=== PATIENT | female | born 1945 | race Caucasian/White ===

== ENCOUNTER 2017-04-06 02:26 | Inpatient (IN) | payer OTHER ==
[~2017-04-06] VITALS: Ht 165.1 cm; Wt 63.5 kg
[~2017-04-06 02:26] MED LIST: CALCIUM600 M3 PO; LEVOTHYROXINE75 MCG PO; MULTI-DAY VITA1 EACH PO; TRAMADOL HCL50 M1 PO; VITAMIN D2000 UNIT PO
[2017-04-06] MEDS ORDERED: LEVOXYL75 MCG PO (06:48)
--- NOTE | 2017-04-06 10:08 | Admission Core Measures ---
Admission Meds I reviewed the following Meds: Current Medications Sig/Michael Start time Last Medication Dose Stop Time Status Admin Vancomycin HCl 1,000 MG ONCE 04/06 0000 NR Sodium Chloride 250 ML 04/06 6529 (Normal Saline 0.9%) Acute Coronary Syndrome Inclusion Criteria ACS Diagnosis No Inpatient Core Measures LDL Reminder: If No, please order W/I first 24hr of stay Congestive Heart Failure Inclusion Criteria CHF Diagnosis No Cerebrovascular accident Inclusion Criteria CVA/TIA Diagnosis No Inpatient Core Measures Bedside Swallow Eval Reminder: If BSE failed, place ST order Antithrombotic Reminder: Order Antithrombotic Medication by end of day 2 Antithrombotic Reminder: Document Reason Antithrombotic Not ordered by end of day 2 AFIB/Flutter Reminder: If Present, add to problem list AFIB/Flutter Reminder: Order Anticoag Medication for pts with AFIB/Flutter Atherosclerosis Reminder: If Present, add to problem list LDL Reminder: If No, please order W/I first 24hr of stay PT Order Reminder: If No, please order Venous thromboembolism Inpatient Core Measures VTE Risk Factors: Age > 40, Surgery No Mech VTE prophylaxis d/t No contraindications No VTE Pharm Prophylaxis d/t No contraindications Inclusion Criteria - Per Current guidelines, there needs to be overlap - treatment for the first 5 days of Warfarin therapy. - Parenteral Anticoagulation (IV or SC) needs to be - given along with Warfarin therapy. VTE Diagnosis No VTE Type NONE VTE Confirmed by (Test) NONE Problem List As ranked by this Provider includes Assessment & Plan 1. S/P total knee arthroplasty HOME MEDS Home Med List Cholecalciferol (Vitamin D3) (Vitamin D) 2,000 UNIT CAPSULE 1 CAP PO DAILY SUPP (Reported) Levothyroxine Sodium 75 MCG TABLET 1 TAB PO DAILY AC THYROID (Reported) Levothyroxine Sodium (Levoxyl) 75 MCG TABLET 1 TAB PO DAILY thyroid (Reported ) Multivitamin (Multi-Day Vitamins) 1 EACH TABLET 1 TAB PO DAILY SUPP (Reported ) Tramadol HCl 50 MG TABLET 1 TAB PO BIDP PRN PAIN (Reported)
--- NOTE | 2017-04-06 11:04 | Operative Report ---
Operative/Inv Procedure Report Surgery Date: 04/06/17 Name of Procedure: #1 right total knee arthroplasty #2 extensor mechanism realignment including lateral release medial imbrication of vastus medialis Pre-Operative Diagnosis: #1 right knee osteoarthritis #2 right knee patellar dislocation Post-Operative Diagnosis: Same Estimated Blood Loss: less than 50ml Surgeon/Tank Calibrator: ROSY MOREIRA,rahel FLORENTINO Anesthesia: block Implants: Heather triathlon total knee system-size 5 femur, size 4 tibia, 9 mm cruciate retaining polyethylene, 29 patella Drains: None Specimens: Femoral, tibial, patellar bone Microbiology: Urine Tourniquet: 83 minutes Complications: None Condition: Stable Operative Indication: Patient is a 72-year-old woman who has a history of right knee osteoarthritis. Most severe findings were patellofemoral. However she also had a history of a patellar fracture treated several years ago by a different orthopedic surgeon She had been found to have a patellar dislocation in addition to her osteoarthritis. This causes severe instability and difficulty with range of motion and with normal activities of daily living. She had mechanical symptoms. 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 Patient wished to proceed with total knee arthroplasty and reconstruction/realignment of the patellofemoral mechanism. I explained to the patient that the primary total knee arthroplasty is 1 component of the surgery but we would need to perform the patellofemoral realignment alignment. This would include soft tissue procedures unless intraoperative findings would require other means. She wished to proceed with the surgery. Risks, benefits and expectations of the surgical procedure were discussed which included but were not limited to persistent knee pain, need for subsequent surgery and even possible bony procedure to correct patellofemoral alignment, infection, DVT, injury to blood vessel or nerve, persistent or recurrent patellar dislocation and anesthesia risks. Operative/Procedure Note Note: Technical description of the procedure. Patient was brought to the operating room patient was brought to the operating room and transferred to the operating table. Once under appropriate anesthesia the right lower extremity was prepped and draped in standard fashion. Preoperative IV antibiotics were given prophylactically. Right lower extremity was elevated exsanguinated and tourniquet was inflated. I used the same incision that was used previously except I was able to use a smaller portion of that incision. The incision was taken down sharply to the underlying retinaculum. Nonabsorbable sutures were visualized around the patella as well as the patellar tendon and quadriceps tendon. These sutures which were accessible were removed. The medial retinaculum was significantly attenuated. Patella was dislocated and patella was tracking along the lateral aspect of the femur. Incision was made in the retinaculum as portion of the medial retinacular approach. The incision was taken down into this quadriceps tendon as a medial parapatellar approach. Osteophytes were excised. Portion of the fat pad was excised. Degenerative meniscal tissues were excised. ACL remnants were removed. End-stage degenerative changes of the patellofemoral joint. Moderately severe degenerative changes of the medial and lateral compartments. Large osteophyte formations along the medial tibia and lateral femur. Portion of the lateral meniscus was removed to facilitate visualization. I then entered the distal femur after flexing the knee. The intramedullary femoral guide was impacted in place pinned in position and the distal femoral cut was made. I then sized the femur to a size 5 which was slightly bigger than I expected based on my preoperative templating. However smaller component would deathly notch the anterior femur. The size 5 cutting guide was pinned in place and my cuts were made. I was satisfied with this at this point time. I then used the external tibial alignment guide sublux the tibia forward and recessed the PCL for balancing purposes. I then pinned the cutting guide for the tibia anticipating a neutral cut from medial to lateral and reproducing patient's posterior slow- paced on preoperative templating. I was satisfied with this. While protecting the soft tissues I made my tibial cut. I then sized the tibia to a size 4. Trial reduction was then done I found that the knee was tight in extension and balance very well in flexion. Therefore took additional 2 mm off the distal femur. I was satisfied with this balancing after this cut was made. I then did a trial reduction. I was satisfied with the stability in full extension mid flexion and full flexion to gravity. However of the patella needed to be dealt with. After debridement of some scar tissue I did a lateral patellar release in order to facilitate proper tracking. This was not sufficient and would be addressed later on the case. I then measured the patella and remove the appropriate thickness. This was restored with a size 29 patella. I use a slightly smaller patella in order to place the patella as medial as possible to also help in patellofemoral tracking. 3 lug holes were drilled and I took the knee through range of motion. I drilled my lug holes in the femur and marked my tibial rotation. Again the femoral component was impacted so that it was as lateral as possible to facilitate patellofemoral tracking. I made sure there was no rotatory issues with the femur as I checked previously as well. I then marked my tibial rotation to make sure also that it would be marked to avoid internal rotation of the component which would x-ray rotator cuff the tibial tubercle. I made sure that this was rotated properly marked it and then removed all trial components. I then finished preparation of the tibia with the tibial punch. I was satisfied with the preparation of the tibia. Copious irrigation the knee followed as the cement was being mixed on the back table. Once the cement was ready was applied to the dry clean bony surfaces of the tibia. The size 4 tibial component was impacted in place and excess cement was removed with curettes. Cement was applied to the dry clean bony surfaces of the distal femur. The size 5 femoral component was impacted in place and excess cement was removed with curettes. The trial polyethylene component was impacted in place and the knee was taken out to full extension. Cement was applied to the dry clean bony surfaces of the patella. The size 29 patella was impacted in place with excess cement removed with a knife. While the cement was hardening I did a periarticular pericapsular injection of a cocktail which included ropivacaine with epinephrine and Toradol. This would improve postoperative hemostasis and inflammation management. Once cement was hardening took the knee through range of motion. Small excess pieces of cement were excised using osteotome and mallet. I was satisfied with the size 9 component. I removed the trial. Copious irrigation the tibial tray followed. I made sure there was no soft tissue, bone fragments or cement fragments within the tibial tray and then I impacted the definitive size 9 cruciate retaining polyethylene into place. The locking mechanism was confirmed. I then needed to work on the patellofemoral alignment. I completed and made sure that the lateral release was completed as distal and as proximal as possible. Scar tissue was excised in the lateral compartment as well. After copious irrigation I placed several sutures with the vastus medialis imbricated to facilitate tracking. After placing several sutures I did take the knee through range of motion. I was satisfied with the tracking with full extension into flexion and full flexion to gravity. I was satisfied with the patellofemoral tracking. I then continued the medial imbrication. This was also done after tourniquet was deflated at 83 minutes. Hemostasis was confirmed.. No need for a drain. I completed the medial repair and realignment of the patellofemoral articulation. Again I was satisfied with the repair. No undue tension was noted on the repair site. The lateral release was fairly extensive which included the scar tissue that needed to be excised from the synovial lining. After every level closure copious irrigation followed. Subcutaneous tissues closed in 2 layers with 2-0 Vicryl and skin was closed with a running 3-0 Vicryl suture with the knee in flexion. Appropriate just his were applied and patient was awakened and taken to recovery room in good condition. No intraoperative Locations. Blood loss was 50 mL Discharge Disposition: PACU
[2017-04-06 13:15] VITALS: BP 126/70
--- NOTE | 2017-04-06 13:20 | NUR ---
PT ARRIVED TO FLOOR FROM PACU. VSS. IV RUNNING WITH D5 1/2 AT 75. PT DENIES PAIN. PT ORIENTED TO FLOOR. GIVEN CALL BARRERA AND PLACED BED IN LOWEST POSITION.
[2017-04-06] MEDS ORDERED: FERROUS SULFAT325 M3 PO (14:29)
[2017-04-06] MEDS ORDERED: COLACE100 M1 PO (15:00)
[2017-04-06 16:03] VITALS: BP 134/74
--- NOTE | 2017-04-06 16:10 | PN- Orthopedic ---
Subjective Subjective: Patient received on general surgical floor POD 0, s/p right total hip replacement. She tolerated the procedure well. Presently she denies discomfort to her surgical knee, her on Q is in place. She denies chest pain, shortness of breath and difficulty breathing. She denies nausea and vomitting. She has yet to ambulate. She has a maza catheter in place. Objective Vital Signs and I&Os Vital Signs Date Time Temp Pulse Resp B/P B/P Pulse O2 O2 Flow FiO2 Mean Ox Delivery Rate 04/06 1603 97.9 71 20 134/74 99 Room Air 04/06 1315 97.6 70 18 126/70 100 Room Air Intake & Output 04/06 1600 04/06 0800 04/06 0000 04/05 1600 04/05 0800 04/05 0000 Intake Total Output Total 50 Balance -50 Output, Urine 50 Patient 140 lb Weight Physical Exam: General: Alert and oriented x3, no acute distress. Cardiac: RRR, s1s2 Pulmonary: C T A bilaterally Abdomen: Soft and non-tender, non-distended Extremities: Moves all extremties, distal sensation intact. Motor 5/5 in plantar and dorsi flexion. Skin warm and well perfused. DP pulses palpable bilaterally. Bilateral calves soft and non-tender. Surgical site: Right knee. Dressing dry and intact. On Q in place with no evidence of leak. Assessment/Plan Assessment/Plan This is a 72 year old female, POD 0, s/p right tkr. PMH significant for hypothyroid, synthroid was taken this am pre operatively. Plan: -Home meds: Continue home medications -ABX ppx: Vancomycin 1 gram q 12 hours to be continued for a period of 24 hours -DVT ppx: Mechanical: ALPS Pharmacological: Coumadin, dosed daily per INR, target INR 2-3 -Bowel Regimen: Colace 100 BID -Pain Regimen: Percocet PO, give IV pain meds for breakthrough if po ineffective -Activity: OOB, wbat, rolling walker, PT eval/treat -Diet: Regular, advance as tolertated -Dispo Planning: Home with home health services in 2-3 days Will discuss with Dr. Cool Core Measures/Miscellaneous Venous Thromboembolism VTE Risk Factors: Age > 40, Surgery VTE Contraindications: No Contraindications VTE Diagnosis: No VTE Type: NONE VTE Confirmed by (Test): NONE Beta Grace Is Beta Grace a Home Med? No Antibiotics Is Patient on Antibiotics? Yes If Yes: prophylaxis
[2017-04-06 18:27] VITALS: BP 120/80
[2017-04-06 20:03] VITALS: BP 114/58
[2017-04-07 00:13] VITALS: BP 90/50
[2017-04-07 04:13] VITALS: BP 100/64
--- NOTE | 2017-04-07 07:55 | PN- Orthopedic ---
See Addendum Subjective Subjective: Doing well, pain controlled overnight. No cp, sob, n/v. Objective Vital Signs and I&Os Vital Signs Date Time Temp Pulse Resp B/P B/P Pulse O2 O2 Flow FiO2 Mean Ox Delivery Rate 04/07 0413 98.4 66 20 100/64 98 Room Air 04/07 0013 98.0 66 20 90/50 98 Room Air 04/06 2003 98.2 72 20 114/58 99 Room Air 04/06 1827 98.3 70 20 120/80 99 Room Air 04/06 1603 97.9 71 20 134/74 99 Room Air 04/06 1315 97.6 70 18 126/70 100 Room Air Intake & Output 04/07 0800 04/07 0000 04/06 1600 04/06 0800 04/06 0000 04/05 1600 Intake Total 780 600 85 Output Total 450 600 50 Balance 330 0 35 Intake, IV 600 600 75 Intake, Oral 180 10 Output, Urine 450 600 50 Patient 140 lb Weight Physical Exam: General: AAO x3, no acute distress Cardiac: RRR, s1s2 Pulm: CTA Abd: Non-tender, non-distended Extremties; Moves all extremities, distal sensation intact. Skin warm and well perfused. DP pulses palpable. Motor intact. Calves soft bilaterally Assessment/Plan Assessment/Plan This is a 72 year old female, POD 1, s/p TKR -OOB with PT today, ambulate WBAT -Continue current pain regimen -DC IV fluids -F/U void, maza dc at 0700 -F/U am labs -Coumadin per INR, target INR 2-3 Core Measures/Miscellaneous Venous Thromboembolism VTE Risk Factors: Age > 40, Surgery VTE Contraindications: No Contraindications VTE Diagnosis: No VTE Type: NONE VTE Confirmed by (Test): NONE Beta Grace Is Beta Grace a Home Med? No Antibiotics Is Patient on Antibiotics? Yes If Yes: prophylaxis
[2017-04-07 08:15] VITALS: BP 116/64
[2017-04-07 08:46] LABS: PT 10.7 SEC (9.4-12.5)
[2017-04-07 08:58] LABS: ABSOLUTE BASOPHIL COUNT 0 /CUMM (0.0-0.2); ABSOLUTE EOSINOPHIL COUNT 0 /CUMM (0.0-0.7); ABSOLUTE MONOCYTE COUNT 0.6 /CUMM (0.10-0.60); BASOPHIL % 0.2 % (0.0-2.0); EOSINOPHIL % 0 % (0-5); GRANULOCYTE % 78.8 % (42.2-75.2); HEMATOCRIT 25.8 % (37-47); MEAN CORPUSCULAR HGB 29.6 PG (27.0-31.0); MEAN CORPUSCULAR HGB CONC 34.4 G/DL (33.0-37.0); MEAN CORPUSCULAR VOLUME 86.1 FL (81.0-99.0); PLATELET COUNT 157 /CUMM (130-400); RBC DISTRIBUTION WIDTH 13.6 % (11.5-14.5); WHITE BLOOD CELL COUNT 7.7 /CUMM (4.8-10.8)
--- NOTE | 2017-04-07 09:45 | NUR ---
PT VOIDED 450 ML AT THIS TIME. WILL CONTINUE TO MONITOR.
[2017-04-07 11:22] VITALS: BP 118/72
[2017-04-07 14:28] VITALS: BP 118/72
[2017-04-07 22:21] VITALS: BP 120/60
[2017-04-08 06:30] VITALS: BP 118/64
[2017-04-08 08:08] LABS: ABSOLUTE BASOPHIL COUNT 0 /CUMM (0.0-0.2); ABSOLUTE EOSINOPHIL COUNT 0.2 /CUMM (0.0-0.7); ABSOLUTE LYMPH COUNT 1.5 /CUMM (1.2-3.4); ABSOLUTE MONOCYTE COUNT 0.5 /CUMM (0.10-0.60); BASOPHIL % 0.5 % (0.0-2.0); EOSINOPHIL % 3.1 % (0-5); GRANULOCYTE % 57.8 % (42.2-75.2); HEMATOCRIT 24.4 % (37-47); MEAN CORPUSCULAR HGB 29.5 PG (27.0-31.0); MEAN CORPUSCULAR HGB CONC 34.7 G/DL (33.0-37.0); MEAN CORPUSCULAR VOLUME 84.9 FL (81.0-99.0); MEAN PLATELET VOLUME 6.9 FL (7.4-10.4); PLATELET COUNT 196 /CUMM (130-400); RBC DISTRIBUTION WIDTH 13.7 % (11.5-14.5); RED BLOOD CELL CT 2.87 /CUMM (4.20-5.40); WHITE BLOOD CELL COUNT 5.2 /CUMM (4.8-10.8)
--- NOTE | 2017-04-08 08:10 | PN- Orthopedic ---
See Addendum Subjective Subjective: Patient reporting spasm to distal/anterior aspect of right lower extremity overnight, noting increasing surgical pain, but otherwise no acute overnight events. Denies chest pain, shortness of breath and difficulty breathing. Denies nausea and vomitting. Has been voiding. Objective Vital Signs and I&Os Vital Signs Date Time Temp Pulse Resp B/P B/P Pulse O2 O2 Flow FiO2 Mean Ox Delivery Rate 04/08 0630 99.5 81 18 118/64 97 Room Air 04/07 2221 99.3 73 20 120/60 96 04/07 1428 98.1 68 22 118/72 99 04/07 1122 98.1 63 20 118/72 99 Room Air 04/07 1101 Room Air Room Air 04/07 0815 98.0 69 20 116/64 99 Intake & Output 04/08 1600 04/08 0800 04/08 0000 04/07 1600 04/07 0800 04/07 0000 Intake Total 620 780 600 Output Total 400 450 450 600 Balance -400 170 330 0 Intake, IV 20 600 600 Intake, Oral 600 180 Output, Urine 400 450 450 600 Physical Exam: General: Alert and oriented x3, no acute distress Cardiac: RRR, s1s2 Pulm: CTA bilaterally Abdomen: Non-tender, non-distended Extremity: Moves all extremities, distal sensations intact. Motor 5/5 in plantar and dorsiflexion. Skin warm and well pefused. DP pulses palpable bilaterally. Bilateral calves soft and non-tender Surgical Site: Dressing changed, skin edges well approximated, steri strips remain in place, no drainage noted, no excessive redness, warmth, swelling. Clean, dry dressing reapplied. Assessment/Plan Assessment/Plan This is a 72 year old female, POD 2, s/p right total knee replacement. New onset of spasm overnight, otherwise doing well. -Add valium 5 mg po daily prn for spasm, will increase frequency if beneficial -Continue current pain regimen, on Q d/c'd this am -Patient considering dc to home today if pain and spasm are tolerable, otherwise plan for dc home tomorrow pending pain control -Continue to follow am labs, INR, dose coumadin for target INR 2-3 -Continue mechanical dvt ppx -OOB, wbat, ambulate with rolling walker -Continue diet as tolerated -Will d/w Dr. Komninakas Core Measures/Miscellaneous Venous Thromboembolism VTE Risk Factors: Age > 40, Surgery VTE Contraindications: No Contraindications VTE Diagnosis: No VTE Type: NONE VTE Confirmed by (Test): NONE Beta Grace Is Beta Grace a Home Med? No Antibiotics Is Patient on Antibiotics? Yes If Yes: prophylaxis
[2017-04-08 08:15] LABS: PT 15.9 SEC (9.4-12.5)
[2017-04-08] MEDS ORDERED: PERCOCET 5-3251 EACH PO (08:16)
[2017-04-08] MEDS ORDERED: COUMADIN5 M2 PO (08:16)
--- NOTE | 2017-04-08 08:27 | Patient Discharge Instructions ---
Discharge Instructions General Discharge Information You were seen/treated for: Right knee pain secondary to osteoarthritis You had these procedures: Right total knee replacement Watch for these problems: Increasing pain despite the use of pain medication, redness, warmth, swelling. Drainage of any type from incision. Inability to bear weight on right leg. Persistent nausea and vomitting. Fever greater than 101.5 degrees. Do not soak the wound: Yes Daily wet to dry dressings: No No bath, but you may shower: Yes Other wound care: Keep wound clean and dry. Do not remove steri strips yourself, rather, allow them to dry and fall off on their own. Special Instructions: Coumadin: This is a blood thinner meant to help protect you against the development of blood clots. Another name for this medication is warfarin. The dose of this medication is based on labwork called INR and it is subject to change daily. Your INR will be tested frequently and the results will be reported to Dr. Cool. Prior to taking this medication, please be sure you have been given instructions from Dr. Cool' office regarding your daily doses. Diet Continue normal diet: Yes Recommended Diet: Regular Additional DIET Information: Advance as tolerated Activity Full Activity/No Limits: No Activity Self Limited: Yes Pounds, do NOT lift more than: 10 Activity Limited to: Weight bear as tolerated Acute Coronary Syndrome Inclusion Criteria At DC or during hospital stay patient has or had the following: ACS DIAGNOSIS No Discharge Core Measures Meds if any: Prescribed or Continued at Discharge Meds if any: NOT Prescribed or Continued at Discharge Congestive Heart Failure Inclusion Criteria At DC or during hospital stay patient has or had the following: CHF DIAGNOSIS No Discharge Core Measures Meds if any: Prescribed or Continued at Discharge Meds if any: NOT Prescribed or Continued at Discharge Cerebrovascular accident Inclusion Criteria At DC or during hospital stay patient has or had the following: CVA/TIA Diagnosis No Discharge Core Measures Meds if any: Prescribed or Continued at Discharge Meds if any: NOT Prescribed or Continued at Discharge Venous thromboembolism Inclusion Criteria VTE Diagnosis No VTE Type NONE VTE Confirmed by (Test) NONE Discharge Core Measures - Per Current guidelines, there needs to be overlap - treatment for the first 5 days of Warfarin therapy. - If discharged on Warfarin prior to 5 days of - overlap therapy, the patient will need to be - assessed for post discharge needs including - *Post discharge parental anticoagulation - *Warfarin and/or parental anticoagulation education - *Follow up date to check INR post discharge At least 5 days overlap therapy as Inpatient No Meds if any: Prescribed or Continued at Discharge Note: Overlap Therapy is Warfarin and Anticoagulant Meds if any: NOT Prescribed or Continued at Discharge
--- NOTE | 2017-04-08 08:34 | Surgical Discharge Summary ---
Visit Information Visit Dates Admission Date: 04/06/17 Discharge Date: 04/09/17 History of Present Illness Chief Complaint: Right knee pain secondary to unilateral primary osteoarthritis Medical History Blood Transfusion Hx: No Neurological: NONE EENT: NONE Cardiovascular: NONE Respiratory: NONE Endocrine: hypothyroidism History of MRSA: No History of VRE: No History of CDIFF: No Isolation History: Standard Influenza Vaccine: 09/04/16 Surgical History Pertinent Surgical History: 2010-THYROIDECTOMY 2012 KNEE SURGERY 2013 TOE SURGERY Family History Relations & Conditions If Any: Relation not specified for: FH: colon cancer Psychosocial History Who Do You Live With? Spouse What is Your Primary Language? Cape Verdean Review of Systems: See H&P Hospital Course Course Attending Physician: ROSY MOREIRA,[facility] Primary Care Physician: RAY MOREIRA,[facility] Course: 04/06/2017 Sheryl was admitted to the hospital for an elective right total knee replacement. She tolerated the procedure well and was transferred to a general surgical floor. Her diet was advanced and tolerated and she voided spontaneously. She was evaluated and treated by physical therapy and she was deemed appropriate for discharge. At the time of discharge, her vital signs were stable and within normal limits, her pain was controlled with oral pain medication, and her neurovascular status was intact. Allergies: Coded Allergies: iodine (RASH 04/08/17) ALLERGY TO IODINE DYE Disposition Summary Disposition Principal Diagnosis: Right knee unilateral primary osteoarthritis Additional Diagnosis: none Discharge Disposition: home health services Discharge Instructions General Discharge Information Code Status: Full Code Patient's Diet: Regular, advance as tolerated Patient's Activity: WBAT Follow-Up Instructions/Appts: Follow up with Dr. Cool in 2 weeks from date of surgery. Medications at Discharge Discharge Medications: Stop taking the following medications: Tramadol HCl (Tramadol HCl) 50 MG TABLET ORAL 2 x Daily as needed as needed for PAIN Continue taking these medications: Levothyroxine Sodium (Levothyroxine Sodium) 75 MCG TABLET 1 Tablet ORAL DAILY BEFORE BREAKFAST Qty = 90 Comments: Last Taken: 04/09/17 Time: 0600 Calcium (Elemental-Fr Calcarb) (Calcium) 600 MG CALCIUM (1,500 MG) TABLET 1 ORAL Comments: NOT TAKEN IN HOSPITAL Multivitamin (Multi-Day Vitamins) 1 EACH TABLET 1 Tablet ORAL DAILY Comments: Last Taken: 04/09/17 Time: 0900 Cholecalciferol (Vitamin D3) (Vitamin D) 2,000 UNIT CAPSULE 1 Capsule ORAL DAILY Comments: NOT TAKEN IN HOSPITAL Ferrous Sulfate (Ferrous Sulfate) 325 MG (65 MG IRON) TABLET 1 Tablet ORAL DAILY Comments: NOT TAKEN IN HOSPITAL Docusate Sodium (Colace) 100 MG CAPSULE 1 Capsule ORAL TWICE DAILY Comments: Last Taken: 04/09/17 Time: 1130 Docusate Sodium (Colace) 100 MG CAPSULE 1 Capsule ORAL THREE TIMES DAILY Qty = 60 Instructions: DISCONTINUE USE IF YOU DEVELOP LOOSE STOOL OR DIARRHEA Comments: Last Taken: 04/09/17 Time: 1125 This prescription has been renewed Start taking the following new medications: Oxycodone HCl/Acetaminophen (Percocet 5-325 MG Tablet) 5 MG-325 MG TABLET 1-2 Tablet ORAL Q4-6H as needed for PAIN Qty = 36 No Refills Comments: Last Taken: 04/09/17 Time: 0900 Warfarin Sodium (Coumadin) 5 MG TABLET 1 Tablet ORAL DAILY Qty = 30 No Refills Instructions: TITRATE DOSE PER INR, TARGET INR 2-3, AWAIT/OBTAIN SPECIFIC INSTRUCTIONS PRIOR TO TAKING Comments: Last Taken: 04/08/17 Time: 1700 Docusate Sodium (Colace) 100 MG CAPSULE 1 Capsule ORAL THREE TIMES DAILY Qty = 14 No Refills Instructions: DISCONTINUE USE IF YOU DEVELOP LOOSE STOOL OR DIARRHEA Polyethylene Glycol 3350 (Miralax) 17 GRAM POWD.PACK 1 Packet ORAL DAILY Qty = 20 No Refills Instructions: dissolve in water, DISCONTINUE USE IF YOU DEVELOP LOOSE STOOL OR DIARRHEA Comments: Last Taken: 04/09/17 Time: 0900
--- NOTE | 2017-04-08 09:12 | RADIOLOGY REPORT ---
EXAMINATION: XR KNEE, RIGHT CLINICAL INFORMATION: Status post right total knee arthroplasty. COMPARISON: Right knee radiographs 04/05/2012. TECHNIQUE: Two views of the right knee. FINDINGS: There are expected postoperative changes of a total right knee arthroplasty. Hardware is in place and alignment is maintained. Edema and soft tissue gas is consistent with recent surgery. IMPRESSION: Expected postoperative changes of a right total knee arthroplasty. Hardware is in place and alignment is maintained.
[2017-04-08 13:57] VITALS: BP 122/70
[2017-04-08 23:16] VITALS: BP 110/70
[2017-04-09 06:00] VITALS: BP 112/64
[2017-04-09 08:12] LABS: ABSOLUTE BASOPHIL COUNT 0 /CUMM (0.0-0.2); ABSOLUTE EOSINOPHIL COUNT 0.1 /CUMM (0.0-0.7); ABSOLUTE LYMPH COUNT 2.4 /CUMM (1.2-3.4); ABSOLUTE MONOCYTE COUNT 0.6 /CUMM (0.10-0.60); BASOPHIL % 0.5 % (0.0-2.0); EOSINOPHIL % 1.7 % (0-5); GRANULOCYTE % 55.6 % (42.2-75.2); HEMATOCRIT 28.2 % (37-47); MEAN CORPUSCULAR HGB CONC 34.3 G/DL (33.0-37.0); MEAN CORPUSCULAR VOLUME 87.4 FL (81.0-99.0); MEAN PLATELET VOLUME 6.7 FL (7.4-10.4); PLATELET COUNT 235 /CUMM (130-400); RBC DISTRIBUTION WIDTH 13.8 % (11.5-14.5); RED BLOOD CELL CT 3.22 /CUMM (4.20-5.40); WHITE BLOOD CELL COUNT 7.1 /CUMM (4.8-10.8)
--- NOTE | 2017-04-09 09:40 | PN- Orthopedic ---
Subjective Subjective: Patient expressing concern about current constipation. States that she has been able to pass small amounts of firm stool but has not been able to have a complete bowel movement. She is not belching, she denies nausea and vomitting. From a surgical standpoint, her pain has been controlled well, she has been responding to po percocet. Her spasm has resolved after one dose of valium. She deines chest pain and shortness of breath. Objective Vital Signs and I&Os Vital Signs Date Time Temp Pulse Resp B/P B/P Pulse O2 O2 Flow FiO2 Mean Ox Delivery Rate 04/09 0600 98.2 91 18 112/64 98 Room Air 04/08 2316 97.7 82 20 110/70 96 Room Air 04/08 1357 98.3 75 20 122/70 99 Room Air Intake & Output 04/09 1600 04/09 0804/09 0000 04/08 1600 04/08 0800 04/08 0000 Intake Total 200 480 500 150 Output Total 800 1050 1100 400 Balance -600 -570 -600 150 -400 Intake, Oral 200 480 500 150 Output, Urine 800 1050 1100 400 Physical Exam: General: Alert and oriented x3, no acute distress Cardiac: RRR, s1s2 Pulm: CTA bilaterally Abdomen: Non-distended, normoactive bowel sounds auscultated Extremities; Moves all extremities, distal sensation intact. Motor 5/5 in plantar and dorsiflexion. Skin warm and well perfused. Palpable dp pulses bilaterally. Bilateral calves soft and non-tender. Surgical site: Right knee, skin edges well approximated, steri strips in place. No excessive surrounding warmth or erythema. Dressing dry and intact. Assessment/Plan Assessment/Plan This is a 78 year old female, POD 3, s/p R TKR. Now consitpated. -Fleets enema now -Colace increase from bid to tid -Continue daily miralax -Continue current pain regimen -Continue oob wbat -Continue coumadin for dvt ppx -Target INR 2-3 -Plan for discharge to home with home health services -Raf Cool Core Measures/Miscellaneous Venous Thromboembolism VTE Risk Factors: Age > 40, Surgery VTE Contraindications: No Contraindications VTE Diagnosis: No VTE Type: NONE VTE Confirmed by (Test): NONE Beta Grace Is Beta Grace a Home Med? No Antibiotics Is Patient on Antibiotics? Yes If Yes: prophylaxis
[2017-04-09] MEDS ORDERED: COLACE100 M1 PO ×2 (09:41→09:44)
[2017-04-09] MEDS ORDERED: MIRALAX17 G1 PO (09:44)
== END 2017-04-09 13:57 | disposition home health service (06) | DRG 470 ==
LOC: 2NA 02:26 → SDA 02:26 → ENRESERV 12:05 → 2NA 13:07 → ENPENDDIS 04-09 10:00 → 2NA 04-09 13:57
PROVIDERS: Physician Assistant; Physician Assistant Surgical; ADMIT Orthopaedic Surgery
PROC: 0SRC0J9 Replacement of Right Knee Joint with Synthetic Substitute, Cemented, Open Approach (ICD-10-PCS; principal; 2017-04-06)
PROC: 0MQN0ZZ Repair Right Knee Bursa and Ligament, Open Approach (ICD-10-PCS; principal; 2017-04-06)
PROC: 3E0T3CZ (ICD-10-PCS; 2017-04-06)
DX: M17.11 Unilateral primary osteoarthritis, right knee (principal); M22.01 Recurrent dislocation of patella, right knee; E03.9 Hypothyroidism, unspecified
CPT/HCPCS: 2NAP; 73560-RT; 82436; 87086; 88305; 97110-GO; 97116-GO; 97161-GP; 97530-GO; C1713; J0131; J0171; J1200; J1885; J2405; J2795; J3370; J7040; J7042

== ENCOUNTER 2018-03-22 09:08 | Inpatient (IN) | payer OTHER ==
[~2018-03-22] VITALS: Ht 165.1 cm; Wt 66.3 kg
[~2018-03-22 09:08] MED LIST changes: +COLACE100 M1 PO; +COUMADIN5 M2 PO; +DAILY VALUE1 EACH PO; +FERROUS SULFAT325 M3 PO; +LEVOXYL75 MCG PO; +MIRALAX17 G1 PO; -MULTI-DAY VITA1 EACH PO; +PERCOCET 5-3251 EACH PO
[2018-03-22 10:02] LABS: ABSOLUTE BASOPHIL COUNT 0 /CUMM (0.0-0.2); ABSOLUTE EOSINOPHIL COUNT 0.1 /CUMM (0.0-0.7); ABSOLUTE LYMPH COUNT 1.3 /CUMM (1.2-3.4); ABSOLUTE MONOCYTE COUNT 0.6 /CUMM (0.10-0.60); BASOPHIL % 0.4 % (0.0-2.0); EOSINOPHIL % 1.7 % (0-5); GRANULOCYTE % 71.2 % (42.2-75.2); HEMATOCRIT 32.5 % (37-47); MEAN CORPUSCULAR HGB 29.3 PG (27.0-31.0); MEAN CORPUSCULAR HGB CONC 33.1 G/DL (33.0-37.0); MEAN CORPUSCULAR VOLUME 88.4 FL (81.0-99.0); MEAN PLATELET VOLUME 6.6 FL (7.4-10.4); PLATELET COUNT 221 /CUMM (130-400); RBC DISTRIBUTION WIDTH 13.2 % (11.5-14.5); RED BLOOD CELL CT 3.68 /CUMM (4.20-5.40)
--- NOTE | 2018-03-22 10:04 | ED GI/GU/ABDOMINAL COMPLAINT ---
See Addendum History of Present Illness General Chief Complaint: Abdominal Pain/Flank Pain Stated Complaint: R SIDED ABD PAIN Source: patient Exam Limitations: no limitations Vital Signs & Intake/Output Vital Signs & Intake/Output Vital Signs Date Time Temp Pulse Resp B/P B/P Pulse O2 O2 Flow FiO2 Mean Ox Delivery Rate 03/22 1900 98.4 66 18 124/58 98 03/22 1543 97.8 73 20 118/58 97 Room Air 03/22 1431 98.1 62 20 116/64 98 Room Air 03/22 1246 98.0 62 20 107/62 100 Room Air 03/22 1054 98.7 68 20 125/61 98 Room Air 03/22 0911 98.6 91 18 129/75 98 Room Air Allergies Coded Allergies: iodine (RASH 04/08/17) ALLERGY TO IODINE DYE Reconcile Medications Calcium (Elemental-Fr Calcarb) (Calcium) 600 MG CALCIUM (1,500 MG) TABLET 1 TAB PO DAILY VITAMIN SUPPORT (Reported) Cholecalciferol (Vitamin D3) (Vitamin D) 2,000 UNIT CAPSULE 1 CAP PO DAILY SUPP (Reported) Docusate Sodium (Colace) 100 MG CAPSULE 1 CAP PO TID constipation DISCONTINUE USE IF YOU DEVELOP LOOSE STOOL OR DIARRHEA Levothyroxine Sodium 75 MCG TABLET 1 TAB PO DAILY AC THYROID (Reported) Multivitamin (Daily Value) 1 EACH TABLET 1 TAB PO DAILY VITAMIN SUPPORT ( Reported) Polyethylene Glycol 3350 (Miralax) 17 GRAM POWD.PACK 1 PAC PO DAILY CONSTIPATION dissolve in water, DISCONTINUE USE IF YOU DEVELOP LOOSE STOOL OR DIARRHEA Triage Note: 73 YO FEMALE TO TRIAGE C/O R SIDED FLANK PAIN. STATES THE PAIN STARTED THURSDAY NIGHT AND SHE VOMITED X1. STATES SHE HASNT BEEN EATING MUCH D/T THE PAIN. REPORTS HER URINE WAS DARKER IN COLOR THIS MORNING AND HAD AN ODOR. Triage Nurses Notes Reviewed? yes LMP (ages 10-50): unknown ? N Is pt currently ? No Onset: Abrupt Duration: day(s): (3), changing over time, continues in ED Timing: single episode today Quality/Severity: dullness, fullness Severity Numbers: 6 Location: right flank, right lower quadrant Radiation: no radiation Activities at Onset: none Prior Abdominal Problems: none Past Sexual History: Unobtainable at this time No Modifying Factors: none Modifying Factors: Worsens With: movement. Associated Symptoms: abdominal pain HPI: 73 year old female past medical history of hypothyroidism since for evaluation of abdominal pain. Patient states she first noticed this about 3 days ago. The pain is located in the right lower quadrant and right flank. The pain is worse with movement of the trunk and palpation. It resolves when she lays still. There is no trauma or known triggering event. She never had this before. She reports associated nausea. No diarrhea chest pain or shortness of breath. No back pain or fever. She does feel like her urine was darker than usual. No dysuria or frequency urgency. No recent abdominal surgeries (Bartolome Muro) Past History Travel History Traveled to [place] past 21 day No Medical History Any Pertinent Medical History? 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 No (Bartolome Muro) Review of Systems Review of Systems Constitutional: Reports: no symptoms. EENTM: Reports: no symptoms. Respiratory: Reports: no symptoms. Cardiovascular: Reports: no symptoms. GI: Reports: see HPI, abdominal pain, nausea. Genitourinary: Reports: no symptoms. Musculoskeletal: Reports: no symptoms. Skin: Reports: no symptoms. Neurological/Psychological: Reports: no symptoms. Hematologic/Endocrine: Reports: no symptoms. Immunologic/Allergic: Reports: no symptoms. All Other Systems: Reviewed and Negative (Bartolome Muro) Physical Exam Physical Exam General Appearance: well developed/nourished, no apparent distress, alert, awake Head: atraumatic, normal appearance Eyes: Bilateral: normal appearance, PERRL, EOMI. Ears, Nose, Throat, Mouth: hearing grossly normal, moist mucous membrane Neck: normal inspection, supple, full range of motion Respiratory: normal breath sounds, chest non-tender, no respiratory distress, lungs clear Cardiovascular: regular rate/rhythm, normal peripheral pulses Peripheral Pulses: 2+ radial (R), 2+ radial (L) Gastrointestinal: normal bowel sounds, soft, no organomegaly, tenderness ( DIFFUSE WORSE RLQ RT FLANK) Back: normal inspection, normal range of motion, no vertebral tenderness Extremities: normal range of motion Neurologic/Psych: no motor/sensory deficits, awake, alert, oriented x 3, normal gait Skin: intact, normal color, warm/dry Core Measures ACS in differential dx? No Sepsis Present: No Sepsis Focused Exam Completed? No (Antonio GUPTA,Bartolome) Progress Differential Diagnosis: appendicitis, biliary colic, bowel obstruction, cholecystitis, diverticulitis, gastritis, inflamm bowel dis, kidney stone, pancreatitis, peptic ulcer, PUD/GERD, SBO, threatened AB, UTI/pyelo Plan of Care: Orders Procedure Date/time Status LIPASE 03/23 600 Active HEPATIC FUNCTION PANEL 03/23 600 Active CBC WITHOUT DIFFERENTIAL 03/23 600 Active BASIC ELECTROLYTES PLUS BUN&CR 03/23 600 Active TROPONIN LEVEL 03/23 0100 Active Nothing by Mouth 03/22 D Active TROPONIN LEVEL 03/22 1904 Complete EKG 03/22 1904 Active Add-on Test (ER Only) 03/22 1706 Active ED Holding Orders 03/22 1526 Active Admit to inpatient 03/22 1526 Active Code Status 03/22 1526 Active Saline Lock 03/22 1437 Active Pathway - chart 03/22 1437 Active Patient Data 03/22 1437 Active Vital Signs 03/22 1437 Active Intake & Output 03/22 1437 Active Activity/Ambulation 03/22 1437 Active Code Status 03/22 1437 Complete Add-on Test (ER Only) 03/22 1250 Active TYPE & SCREEN (NOT X-MATCH) 03/22 1250 Complete Add-on Test (ER Only) 03/22 1235 Active PARTIAL THROMBOPLASTIN TIME 03/22 0945 Complete PROTHROMBIN TIME 03/22 0945 Complete MAGNESIUM 03/22 0945 Complete DIRECT BILIRUBIN 03/22 0945 Complete URINALYSIS 03/22 0919 Complete TROPONIN LEVEL 03/22 09 Complete LIPASE 03/22 0919 Complete COMPREHENSIVE METABOLIC PANEL 03/22 0919 Complete CBC WITHOUT DIFFERENTIAL 03/22 919 Complete EKG 03/22 0912 Active VTE Mechanical Prophylaxis 03/22 UNK Active Current Medications Sig/Michael Start time Last Medication Dose Stop Time Status Admin Levothyroxine Sodium 0.075 MG DAILY AC 05/08 0700 AC (Synthroid) Docusate Sodium 100 MG TID 03/22 2100 AC (Colace) Ampicillin Sodium/ 3,000 MG Q6 03/22 1800 AC 03/22 Sulbactam Sodium 1802 (Unasyn) Sodium Chloride 100 ML (Normal Saline 0.9%) Pantoprazole Sodium 40 MG DAILY 03/22 1659 AC 03/22 (Protonix) 1802 Acetaminophen 1,000 MG Q6P PRN 03/22 1445 AC (Ofirmev) N/A 1 UNIT (No Carrier) Morphine Sulfate 2 MG Q4P PRN 03/22 1445 AC (MORPHINE SULFATE) Ondansetron HCl 4 MG Q6P PRN 03/22 1445 AC (Zofran) Heparin Sodium 5,000 UNIT Q8 03/22 1432 AC 03/22 (Porcine) 1444 Dextrose/Sodium 1,000 ML Q10H 03/22 1430 AC 03/22 Chloride 1444 (D5W-1/2 Normal Saline 1000ML) Laboratory Tests 03/22/18 1915: Troponin I < 0.01 03/22/18 1028: Urinalysis MOD H, Urine Color YEL, Urine Clarity CLEAR, Urine pH 6.0, Ur Specific [place] 1.010, Urine Protein TRACE H, Urine Ketones NEG, Urine Nitrite NEG, Urine Bilirubin NEG, Urine Urobilinogen 0.2, Ur Leukocyte Esterase TRACE H , Ur Microscopic SEDIMENT EXAMINED, Urine RBC 10-15 H, Urine WBC RARE, Ur Epithelial Cells FEW, Urine Bacteria FEW H, Urine Hemoglobin LARGE H, Urine Glucose NEG 03/22/18 0945: Anion Gap 12, Estimated GFR > 60, BUN/Creatinine Ratio 30.0 H, Glucose 102 H, Calcium 8.9, Magnesium 1.9, Total Bilirubin 1.7 H, Direct Bilirubin 0.7 H, AST 107 H, ALT 141 H, Alkaline Phosphatase 151 H, Troponin I 0.02, Total Protein 6.5, Albumin 3.9, Globulin 2.6, Albumin/Globulin Ratio 1.5, Lipase 13 L, PT 12.6 H, INR 1.15, APTT 27, CBC w Diff NO MAN DIFF REQ, RBC 3.68 L, MCV 88.4, MCH 29.3, MCHC 33.1, RDW 13.2, MPV 6.6 L, Gran % 71.2, Lymphocytes % 18.6 L, Monocytes % 8.1, Eosinophils % 1.7, Basophils % 0.4, Absolute Granulocytes 5.0, Absolute Lymphocytes 1.3, Absolute Monocytes 0.6, Absolute Eosinophils 0.1, Absolute Basophils 0 Patient seen and evaluated. She is reporting pain in her right flank and right lower quadrant of her abdomen present for the past 3 days. This pain is reproducible with range of motion of the trunk. On exam she has diffuse abdominal tenderness worse in the right lower quadrant. We'll check basic labs urinalysis EKG. Patient was medicated with IV Tylenol. Blood work shows mildly elevated LFTs alkaline phosphatase and total bilirubin. Urine also shows hematuria. EKG shows some anterior lateral ST depression that appears slightly worse compared to previous. Troponin is negative. Patient has no chest pain or shortness of breath. CT scan is still pending. CT scan shows evidence of acute cholecystitis. Surgery was paged. SPOKE WITH DR BRADEN HE RECCOMENDS UNASYN, US OF THE GALLBLADDER, SHE WILL NEED ADMISSION FOR SERIAL LABS, ABX GI AND SURGERY. PT WILL also get a medicine consult for further evaluation of abnormal EKG. Diagnostic Imaging: Viewed by Me: CT Scan. Discussed w/RAD: CT Scan. Radiology Impression: PATIENT: MARILOU JONES PRESENT AGE: 73 PATIENT ACCOUNT NO: [id number] : 44 LOCATION: [facility] ORDERING PHYSICIAN: Bartolome GUPTA SERVICE DATE: 03/22/18100 EXAM TYPE: CAT - CT ABD & PELVIS W IV CONTRAST EXAMINATION: CT ABDOMEN AND PELVIS WITH CONTRAST CLINICAL INFORMATION: Right lower quadrant abdominal pain. COMPARISON: None TECHNIQUE: Multidetector volumetric imaging was performed of the abdomen and pelvis following IV administration of 95 mL of Optiray 320 intravenous contrast. Sagittal and coronal reformatted images were obtained on the technologist's workstation. Per technologist note, there was infiltration of approximately 10 mL of contrast surrounding the IV line. The IV was removed and a cold compress was placed. The emergency department nurse was made aware. DLP: 319 mGy-cm FINDINGS: LUNG BASES: There are mild dependent changes in the lung bases. The imaged heart and pericardium appear unremarkable. LIVER, GALLBLADDER, AND BILIARY TREE: The liver is normal in size, shape, and attenuation. No focal hepatic lesion or biliary ductal dilatation is present. The gallbladder is markedly distended with gallbladder wall thickening and several gallstones. There is mild intrahepatic biliary ductal dilatation. The visualized common bile duct measures up to 8 mm in diameter. There is periportal fluid/stranding. PANCREAS: The pancreas is fatty atrophied. There appears to be a pancreatic cyst or focally dilated portion of the pancreatic duct in the posterior body measuring up to 8 mm. SPLEEN: Unremarkable. ADRENAL GLANDS: Unremarkable. KIDNEYS AND URETERS: The kidneys are normal in size, shape, and attenuation. No hydronephrosis, hydroureter, or calculi seen. No perinephric stranding. BLADDER: Unremarkable. GASTROINTESTINAL TRACT: There is moderate stool scattered throughout the colon. An appendix is not definitively visualized, however there is no fat stranding in the right lower quadrant of the abdomen. Loops of small bowel appear normal in caliber. The stomach is not distended. ABDOMINAL WALL: No significant hernia is appreciated. LYMPH NODES: No definitive adenopathy is visualized. The periportal region is not well assessed due to the presence of fluid and stranding. VASCULAR: The aorta is normal in caliber with mild calcification. The portal vein appears patent. PELVIC VISCERA: Unremarkable. Trace free fluid is visualized in the pelvis. OSSEOUS STRUCTURES: There is mild multilevel degenerative change of the imaged spine without compression deformity. There are 5 nonrib-bearing lumbar type vertebral bodies. No acute osseous abnormalities. IMPRESSION: There is a markedly distended gallbladder with gallbladder wall thickening, as well as periportal fluid in the setting of scattered gallstones, suggestive of acute cholecystitis. There appears to be mild intra and extrahepatic biliary ductal dilatation. This was discussed with CANDY Wayne at 12:50 PM on 03/22/2018. Nonvisualization of the appendix. No right lower quadrant inflammatory change is visualized. The pancreas appears largely fatty atrophied. There is either a pancreatic cyst or focal pancreatic ductal dilatation measuring 8 mm at the level of the distal pancreatic body. DICTATED BY: Radha Russo MD DATE/TIME DICTATED:03/22/181231 SEWING INSPECTOR:JACINTO DATE/TIME TRANSCRIBED:03/22/181231 CONFIDENTIAL, DO NOT COPY WITHOUT APPROPRIATE AUTHORIZATION. Initial ED EKG: normal sinus rhythm, MINIMAL ST DEPRESSION ANT-LATERAL LEADS Prior EKG: changed (INCREASED ST DEPP IN ANT-LAT) (Bartolome Muro) Comments: I personally evaluated this patient as a attending physician and I agree with the plan for surgical consultation followed by GI consultation for ERCP if necessary. Patient's syndrome does fit with the findings from CT and laboratory analysis. (Casper Zuniga DO) Departure Departure Disposition: STILL A PATIENT Condition: Stable Clinical Impression Primary Impression: Acute cholecystitis Referrals: Mi Snow MD (PCP/Family) Departure Forms: Customer Survey General Discharge Information Admission Note Spoke With: Jamari MOREIRA,Navin Blackwell. Documentation of Exam: Documentation of any treatments & extenuating circumstances including Concerns Regarding Discharge (functional status, medication knowledge or non-compliance, living conditions, etc.) that warrant an admission rather than observation: [ Serial labs, serial EKGs, GI consult, ultrasound, surgical consult, cholecystectomy, IV fluids, IV pain meds] (Bartolome Muro) PA/MANAGER OF SUSTAINABILITY Co-Sign Statement Statement: ED Attending supervision documentation- [] I saw and evaluated the patient. I have also reviewed all the pertinent lab results and diagnostic results. I agree with the findings and the plan of care as documented in the PA's/MANAGER OF SUSTAINABILITY's documentation. [x] I have reviewed the ED Record and agree with the PA's/MANAGER OF SUSTAINABILITY's documentation. [] Additions or exceptions (if any) to the PAs/MANAGER OF SUSTAINABILITY's note and plan are summarized below: [] (Casper Zuniga DO)
--- NOTE | 2018-03-22 12:55 | CT SCAN REPORT ---
EXAMINATION: CT ABDOMEN AND PELVIS WITH CONTRAST CLINICAL INFORMATION: Right lower quadrant abdominal pain. COMPARISON: None TECHNIQUE: Multidetector volumetric imaging was performed of the abdomen and pelvis following IV administration of 95 mL of Optiray 320 intravenous contrast. Sagittal and coronal reformatted images were obtained on the technologist's workstation. Per technologist note, there was infiltration of approximately 10 mL of contrast surrounding the IV line. The IV was removed and a cold compress was placed. The emergency department nurse was made aware. DLP: 319 mGy-cm FINDINGS: LUNG BASES: There are mild dependent changes in the lung bases. The imaged heart and pericardium appear unremarkable. LIVER, GALLBLADDER, AND BILIARY TREE: The liver is normal in size, shape, and attenuation. No focal hepatic lesion or biliary ductal dilatation is present. The gallbladder is markedly distended with gallbladder wall thickening and several gallstones. There is mild intrahepatic biliary ductal dilatation. The visualized common bile duct measures up to 8 mm in diameter. There is periportal fluid/stranding. PANCREAS: The pancreas is fatty atrophied. There appears to be a pancreatic cyst or focally dilated portion of the pancreatic duct in the posterior body measuring up to 8 mm. SPLEEN: Unremarkable. ADRENAL GLANDS: Unremarkable. KIDNEYS AND URETERS: The kidneys are normal in size, shape, and attenuation. No hydronephrosis, hydroureter, or calculi seen. No perinephric stranding. BLADDER: Unremarkable. GASTROINTESTINAL TRACT: There is moderate stool scattered throughout the colon. An appendix is not definitively visualized, however there is no fat stranding in the right lower quadrant of the abdomen. Loops of small bowel appear normal in caliber. The stomach is not distended. ABDOMINAL WALL: No significant hernia is appreciated. LYMPH NODES: No definitive adenopathy is visualized. The periportal region is not well assessed due to the presence of fluid and stranding. VASCULAR: The aorta is normal in caliber with mild calcification. The portal vein appears patent. PELVIC VISCERA: Unremarkable. Trace free fluid is visualized in the pelvis. OSSEOUS STRUCTURES: There is mild multilevel degenerative change of the imaged spine without compression deformity. There are 5 nonrib-bearing lumbar type vertebral bodies. No acute osseous abnormalities. IMPRESSION: There is a markedly distended gallbladder with gallbladder wall thickening, as well as periportal fluid in the setting of scattered gallstones, suggestive of acute cholecystitis. There appears to be mild intra and extrahepatic biliary ductal dilatation. This was discussed with CANDY Wayne at 12:50 PM on 03/22/2018. Nonvisualization of the appendix. No right lower quadrant inflammatory change is visualized. The pancreas appears largely fatty atrophied. There is either a pancreatic cyst or focal pancreatic ductal dilatation measuring 8 mm at the level of the distal pancreatic body.
[2018-03-22 13:03] LABS: PT 12.6 SEC (9.4-12.5); PTT 27 SEC (25-37)
--- NOTE | 2018-03-22 15:45 | ULTRASOUND REPORT ---
EXAMINATION: US ABDOMEN LIMITED CLINICAL INFORMATION: Acute cholecystitis on CT.. COMPARISON: CT of the abdomen and pelvis from earlier the same day. TECHNIQUE: Real-time imaging of the right upper quadrant abdominal viscera. FINDINGS: PANCREAS: The visualized portions of the pancreas appear unremarkable. The pancreatic cyst in the distal pancreatic body seen on CT is not sonographically visualized. LIVER: No focal hepatic lesions are evident. No intrahepatic ductal dilatation. GALLBLADDER: The gallbladder is distended with intraluminal stones and some echogenic intraluminal material suggesting sludge. There is marked gallbladder wall thickening which is measured up to 1.2 cm. There is some hyperemia in the gallbladder wall documented. The technologist's notes no tenderness in the region of the gallbladder during the scan. COMMON BILE DUCT: Sonographically the common bile duct is not dilated, measuring 0.5 cm. No ductal stones are visualized. RIGHT KIDNEY: Normal. No hydronephrosis. No renal calculi or focal parenchymal lesions. The kidney measures 9.2 cm in maximum dimension. FREE FLUID: None. IMPRESSION: The gallbladder is enlarged with marked wall thickening and intraluminal gallstones and sludge. There is no sonographic evidence of ductal dilatation. Findings remain concerning for acute cholecystitis.
--- NOTE | 2018-03-22 17:50 | History & Physical Pre-Op ---
General Information and HPI History of Present Illness: CC: abdominal pain HPI: 73 yo non-diabetic non-smoker with hypothyroidism, and constipation, and anemia, comes to ER with 4 days of constant, RUQ nonradiating abdom pain not worse on movement, no relation to foods (ie. fried or cheese), although she admittedly "loves cheese," there was some N/V initially no fevers and yesterday noticed darkening of urine (ie iced tea) but no loose stools (turner), no FHx of gallbladder problems. Otherwise no changes bowel habits, weight or appetite. I' ve reviewed the [facility]. No history of GERD, PUD, bleeding problems, heart disease or issues with anesthesia. Allergies/Medications Allergies: Coded Allergies: iodine (RASH 04/08/17) ALLERGY TO IODINE DYE Home Med list Calcium (Elemental-Fr Calcarb) (Calcium) 600 MG CALCIUM (1,500 MG) TABLET 1 TAB PO DAILY VITAMIN SUPPORT (Reported) Cholecalciferol (Vitamin D3) (Vitamin D) 2,000 UNIT CAPSULE 1 CAP PO DAILY SUPP (Reported) Docusate Sodium (Colace) 100 MG CAPSULE 1 CAP PO TID constipation DISCONTINUE USE IF YOU DEVELOP LOOSE STOOL OR DIARRHEA Levothyroxine Sodium 75 MCG TABLET 1 TAB PO DAILY AC THYROID (Reported) Multivitamin (Daily Value) 1 EACH TABLET 1 TAB PO DAILY VITAMIN SUPPORT ( Reported) Oxycodone HCl/Acetaminophen (Percocet 5-325 MG Tablet) 5 MG-325 MG TABLET 1-2 TAB PO Q4-6 PRN PRN pain control tylenol alternatively, but do not combine Polyethylene Glycol 3350 (Miralax) 17 GRAM POWD.PACK 1 PAC PO DAILY CONSTIPATION dissolve in water, DISCONTINUE USE IF YOU DEVELOP LOOSE STOOL OR DIARRHEA Past History Medical History Neurological: NONE EENT: NONE Cardiovascular: NONE Respiratory: NONE Gastrointestinal: NONE Hepatic: NONE Renal: NONE Musculoskeletal: NONE Psychiatric: NONE Endocrine: hypothyroidism Blood Disorders: NONE Cancer(s): NONE 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 History of MRSA: No History of VRE: No History of CDIFF: No Influenza Vaccine: 09/04/16 Surgical History Pertinent Surgical History: 2010-THYROIDECTOMY 2012 KNEE SURGERY 2014 TOE SURGERY Past Family/Social History Family History Relations & Conditions if any Relation not specified for: FH: colon cancer Review of Systems Review of Systems: Constitutional: No fever, sweats or weight loss ENMT: No sore throat Cardiovascular: No chest pain, palpitations or leg swelling Respiratory: No shortness of breath, cough, or sputum or dyspnea on exertion GI: No GERD or bleeding per rectum : No dysuria or hematuria Musculoskeletal: No new muscle weakness, bone or joint pain Skin / Breast: No jaundice, rashes or itching Psychiatric: No history of drug or alcohol abuse no depression or anxiety Hematologic / lymphatic system: No problems with excessive bleeding, bruising, or blood clots Exam & Diagnostic Data Last 24 Hrs of Vital Signs/I&O I rev Vital Signs Date Time Temp Pulse Resp B/P B/P Pulse O2 O2 Flow FiO2 Mean Ox Delivery Rate 03/22 1543 97.8 73 20 118/58 97 Room Air 03/22 1431 98.1 62 20 116/64 98 Room Air 03/22 1246 98.0 62 20 107/62 100 Room Air 03/22 1054 98.7 68 20 125/61 98 Room Air 03/22 0911 98.6 91 18 129/75 98 Room Air I rev Intake & Output 03/22 1600 03/22 0800 03/22 0000 Intake Total Output Total Balance Patient 140 lb Weight Weight Reported by Patient Measurement Method Physical Exam: Constitutional: pleasant, no acute distress, conversant Eyes: sclera anicteric ENMT: ears and nose atraumatic, moist mucous membranes, good dentition, no lip lesions Neck: Supple, trachea is midline, no cervical or supraclavicular adenopathy and no palpable thyromegaly Cardiovascular: S1, S2, no murmurs, no peripheral edema Respiratory: clear to auscultation with normal respiratory effort and no intercostal retractions GI: abdomen soft, RU and R side abdom tenderness no rebound, nondistended, no palpable hepatosplenomegaly Extremities / lymphatics: symmetrically warm, free range of motion no peripheral edema, no cervical, supraclavicular, axillary, or inguinal adenopathy Musculoskeletal: Did not evaluate gait and station, no digital cyanosis, good muscle strength and tone no atrophy, motor grossly 5 out of 5 throughout Skin: no jaundice, no rashes warm, nondiaphoretic, no areas of erythema or induration Psychiatric: mood and affect are appropriate and alert and oriented to person place and time Last 24 Hrs of Labs/Abelardo: I rev Laboratory Tests 03/22/18 1028: Urinalysis MOD H, Urine Color YEL, Urine Clarity CLEAR, Urine pH 6.0, Ur Specific Ecru 1.010, Urine Protein TRACE H, Urine Ketones NEG, Urine Nitrite NEG, Urine Bilirubin NEG, Urine Urobilinogen 0.2, Ur Leukocyte Esterase TRACE H , Ur Microscopic SEDIMENT EXAMINED, Urine RBC 10-15 H, Urine WBC RARE, Ur Epithelial Cells FEW, Urine Bacteria FEW H, Urine Hemoglobin LARGE H, Urine Glucose NEG 03/22/18 0945: Anion Gap 12, Estimated GFR > 60, BUN/Creatinine Ratio 30.0 H, Glucose 102 H, Calcium 8.9, Magnesium 1.9, Total Bilirubin 1.7 H, Direct Bilirubin 0.7 H, AST 107 H, ALT 141 H, Alkaline Phosphatase 151 H, Troponin I 0.02, Total Protein 6.5, Albumin 3.9, Globulin 2.6, Albumin/Globulin Ratio 1.5, Lipase 13 L, PT 12.6 H, INR 1.15, APTT 27, CBC w Diff NO MAN DIFF REQ, RBC 3.68 L, MCV 88.4, MCH 29.3, MCHC 33.1, RDW 13.2, MPV 6.6 L, Gran % 71.2, Lymphocytes % 18.6 L, Monocytes % 8.1, Eosinophils % 1.7, Basophils % 0.4, Absolute Granulocytes 5.0, Absolute Lymphocytes 1.3, Absolute Monocytes 0.6, Absolute Eosinophils 0.1, Absolute Basophils 0 Assessment/Plan Assessment/Plan: Studies I reviewed today's CT scan and ultrasound on PACS myself and shows an enlarged thickened dilated gallbladder, her LFTs are mildly elevated but no ductal dilatation on ultrasound. My impression is symptomatic gallstones- Acute cholecystitis. The story is typical. The current standard of care is removal of the gallbladder laparoscopically, in her case urgently. Once they become symptomatic, gallstones can lead to complications such as cholecystitis, pancreatitis and cholangitis and rarely others, her labs have hints of this and she does have acute cholecystitis. I explained the nature and possibility of retained stones, and rarely, persistent postoperative diarrhea. I gina a diagram illustrating how the stones cause problems and how the anatomy and inflammation can make the surgery more difficult, sometimes requiring an open procedure, and rarely to repair a bile duct injury leading to significant morbidity and even mortality. This in our practice is exceedingly rare, but other more common risks were also discussed such as infection, injury to other surrounding structures such as bowel and blood vessels. We also discussed the potential risks, benefits and alternatives to the procedure and surgery in general, issues that included but were not limited to, anesthetic risks hemorrhage requiring transfusion, the risk of transfusion itself, infection, heart attack, stroke, . In her we did discuss the possibility of retained stones. Of note despite her denying any cardiac history or any recent chest pain shortness of breath, while in the ER she was noted to have EKG changes so a cardiology consult was called and this will have to be resolved preoperatively, recheck LFTs in the morning. As Ranked By This Provider Problem List: 1. Acute cholecystitis 2. Elevated LFTs
--- NOTE | 2018-03-22 18:39 | Cons- Medical ---
aCitlin MOREIRA,[facility] 03/22/18 1839: General Information and HPI Consulting Request Date of Consult: 03/22/18 Requested By: Jamari MOREIRA,Navin Rothman Reason for Consult: EKG CHANGES Source of Information: patient Exam Limitations: no limitations History of Present Illness: Sheryl is a 73-year-old lady with past medical history significant for hyperlipidemia and hypothyroidism status post thyroidectomy for thyroid [id number]. She presented to ED with chief complaint of right upper quadrant abdominal pain associated with nausea and vomiting since Thursday night. Medical consult was placed for EKG changes. Patient denied any coronary artery disease, denied any chest pain, palpitation, shortness of breath, epigastric pain. No previous history of TX or abnormal EKG changes. She has her regular physical every 6 month, last EKG in October 2017 within normal. No history of irregular heart rate. No recent changes in her medication or Synthroid dose. Patient reported family history of stroke in her mother and grandfather. Colon cancer in her father. Allergies/Medications Allergies: Coded Allergies: iodine (RASH 04/08/17) ALLERGY TO IODINE DYE Home Med List: Calcium (Elemental-Fr Calcarb) (Calcium) 600 MG CALCIUM (1,500 MG) TABLET 1 TAB PO DAILY VITAMIN SUPPORT (Reported) Cholecalciferol (Vitamin D3) (Vitamin D) 2,000 UNIT CAPSULE 1 CAP PO DAILY SUPP (Reported) Docusate Sodium (Colace) 100 MG CAPSULE 1 CAP PO TID constipation DISCONTINUE USE IF YOU DEVELOP LOOSE STOOL OR DIARRHEA Levothyroxine Sodium 75 MCG TABLET 1 TAB PO DAILY AC THYROID (Reported) Multivitamin (Daily Value) 1 EACH TABLET 1 TAB PO DAILY VITAMIN SUPPORT ( Reported) Polyethylene Glycol 3350 (Miralax) 17 GRAM POWD.PACK 1 PAC PO DAILY CONSTIPATION dissolve in water, DISCONTINUE USE IF YOU DEVELOP LOOSE STOOL OR DIARRHEA Review of Systems Review of Systems Constitutional: Denies: chills, fever, malaise. EENTM: Denies: blurred vision, visual changes. Cardiovascular: Denies: chest pain, orthopena, palpitations, peripheral edema, syncope. Respiratory: Denies: cough, orthopnea, short of breath. GI: Reports: abdominal pain, nausea, vomiting. Denies: constipation. Genitourinary: Denies: dysuria, frequency. Musculoskeletal: Denies: joint pain, joint swelling. 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 Surgical History Surgical History: 2010-THYROIDECTOMY 2012 KNEE SURGERY 2014 TOE SURGERY Family History Relations & Conditions If Any: Relation not specified for: FH: colon cancer Exam & Diagnostic Data Last 24 Hrs of Vital Signs/I&O Vital Signs Date Time Temp Pulse Resp B/P B/P Pulse O2 O2 Flow FiO2 Mean Ox Delivery Rate 03/22 1543 97.8 73 20 118/58 97 Room Air 03/22 1431 98.1 62 20 116/64 98 Room Air 03/22 1246 98.0 62 20 107/62 100 Room Air 03/22 1054 98.7 68 20 125/61 98 Room Air 03/22 0911 98.6 91 18 129/75 98 Room Air Intake & Output 03/22 1600 03/22 0800 03/22 0000 Intake Total Output Total Balance Patient 63.503 kg Weight Weight Reported by Patient Measurement Method Physical Exam General Appearance: well developed/nourished, no apparent distress, alert, awake Head: atraumatic, normal appearance Eyes: Bilateral: normal appearance, PERRL, EOMI. Ears, Nose, Throat: normal pharynx, normal ENT inspection, hearing grossly normal Neck: normal inspection, supple, full range of motion Respiratory: normal breath sounds, chest non-tender, no respiratory distress Cardiovascular: regular rate/rhythm Gastrointestinal: normal bowel sounds, soft, non-tender Extremities: normal inspection, normal capillary refill, normal range of motion, no edema, Ingrowing nail of the right big toe Neurologic/Psych: no motor/sensory deficits, awake, alert, oriented x 3 Last 24 Hrs of Labs/Abelardo: Laboratory Tests 03/23/18 0658: Sodium Pending, Potassium Pending, Chloride Pending, Carbon Dioxide Pending, Anion Gap Pending, BUN Pending, Creatinine Pending, BUN/Creatinine Ratio Pending , Total Bilirubin Pending, Direct Bilirubin Pending, AST Pending, ALT Pending, Alkaline Phosphatase Pending, Total Protein Pending, Albumin Pending, Lipase Pending, CBC w Diff NO MAN DIFF REQ, RBC 3.38 L, MCV 87.2, MCH 29.7, MCHC 34.1, RDW 13.1, MPV 6.9 L, Gran % 58.8, Lymphocytes % 28.8, Monocytes % 8.1, Eosinophils % 3.9, Basophils % 0.4, Absolute Granulocytes 3.0, Absolute Lymphocytes 1.5, Absolute Monocytes 0.4, Absolute Eosinophils 0.2, Absolute Basophils 0 03/23/18 0210: Troponin I < 0.01 03/22/18 1915: Troponin I < 0.01 03/22/18 1028: Urinalysis MOD H, Urine Color YEL, Urine Clarity CLEAR, Urine pH 6.0, Ur Specific Epps 1.010, Urine Protein TRACE H, Urine Ketones NEG, Urine Nitrite NEG, Urine Bilirubin NEG, Urine Urobilinogen 0.2, Ur Leukocyte Esterase TRACE H , Ur Microscopic SEDIMENT EXAMINED, Urine RBC 10-15 H, Urine WBC RARE, Ur Epithelial Cells FEW, Urine Bacteria FEW H, Urine Hemoglobin LARGE H, Urine Glucose NEG 03/22/18 0945: Anion Gap 12, Estimated GFR > 60, BUN/Creatinine Ratio 30.0 H, Glucose 102 H, Calcium 8.9, Magnesium 1.9, Total Bilirubin 1.7 H, Direct Bilirubin 0.7 H, AST 107 H, ALT 141 H, Alkaline Phosphatase 151 H, Troponin I 0.02, Total Protein 6.5, Albumin 3.9, Globulin 2.6, Albumin/Globulin Ratio 1.5, Lipase 13 L, PT 12.6 H, INR 1.15, APTT 27, CBC w Diff NO MAN DIFF REQ, RBC 3.68 L, MCV 88.4, MCH 29.3, MCHC 33.1, RDW 13.2, MPV 6.6 L, Gran % 71.2, Lymphocytes % 18.6 L, Monocytes % 8.1, Eosinophils % 1.7, Basophils % 0.4, Absolute Granulocytes 5.0, Absolute Lymphocytes 1.3, Absolute Monocytes 0.6, Absolute Eosinophils 0.1, Absolute Basophils 0 Assessment/Plan Assessment/Plan Sheryl is a 73-year-old lady with past medical history significant for hyperlipidemia and hypothyroidism status post thyroidectomy for thyroid [id number]. She presented to ED with chief complaint of right upper quadrant abdominal pain associated with nausea and vomiting since Thursday night. Medical consult was placed for EKG changes. Patient has troponin of 0.02, EKG sinus rhythm with ST depression V4 and V5, rate 79, QTc 450 Recommendation -Please admit to telemetry floor for continuous monitor technician -Please trend troponin and EKG x3 -Cardiology consultation to be obtained before surgical procedure -Continue home medication -Obtain TSH -Repeat BEP and liver function in a.m. -Replete electrolytes as needed Consult Acknowledgment - Thank you for your consult request. Jose Westfall MD 03/22/18 1235: Assessment/Plan Consult Acknowledgment - Thank you for your consult request. Attending MD Review Statement Attending Statement Attending MD Statement: examined this patient, discuss w/resident/PA/MAGNETIC PROSPECTING OPERATOR, agreed w/resident/PA/MAGNETIC PROSPECTING OPERATOR, reviewed EMR data (avail), reviewed images, amended to note Attending Assessment/Plan: The patient is a 73 yo female with h/o hyperlipidemia and hypothyroidism (s/p partial thyroidectomy due to benign nodules) who presented in the ED with c/o RUQ abdominal pain/N/V x 3 days. She underwent surgical evaluation and was felt to have cholecystitis. EKG in ED did show mild ST depressions in the inferior and lateral precordial leads (new since Dr. Snow physical 11/01). She denied any chest pain symptoms or dyspnea (is active). She did have some vomiting with this illness and did have a mild decrease in K level on bloodwork. There is a FH of CVA in mother and grandfather. Physical Exam: VS: T 98.6, P 91, R 18, BP 129/75, PO 98% RA HEENT: eyes- PERRLA, EOMI, non-icteric renetta- moist mucosa, no lesions Neck: no JVD/bruits Chest: clear to A&P Cor: RRR nl S1, S2 w/o murm Abd: BS+, softly distended, + tender RUQ with slight guarding w/o rebound Ext: no edema, pulses 2+ Neuro: alert & oriented, non-focal exam Labs/Tests- as above Impression/Plan: #Abnormal EKG- concern regarding mild horizontal ST depressions in inferior and lateral precordial leads that are new since routine EKG done in Dr. Snow's office last year. The patient has no cardiac symptoms and no h/o chest pain or exertional dyspnea. She does have a family history of vascular disease (CVA's). Initial troponin negative. May be related to low K. Plan: Admitted to surgical service- to telemetry bed. Monitor for cardiac symptoms- Cardiology consult in morning. Consider ECHO. #Cholecystitis- abnormal LFT's. Plan: Follow LFT's - patient wishes cholecystectomy if needed. Surgery to follow. #Hypokalemia- due to some vomiting and diminished po intake. Plan: Being repleted in ED- will follow. Check Mg level. #Hypothyroid- s/p partial thyroid resection. Clinically euthyroid. Plan: Continue Levothyroxine.
[2018-03-22 23:12] VITALS: BP 124/78
[2018-03-23 07:18] VITALS: BP 100/62
[2018-03-23 07:53] LABS: ABSOLUTE BASOPHIL COUNT 0 /CUMM (0.0-0.2); ABSOLUTE EOSINOPHIL COUNT 0.2 /CUMM (0.0-0.7); ABSOLUTE MONOCYTE COUNT 0.4 /CUMM (0.10-0.60); EOSINOPHIL % 3.9 % (0-5); GRANULOCYTE % 58.8 % (42.2-75.2); HEMATOCRIT 29.5 % (37-47); MEAN CORPUSCULAR HGB 29.7 PG (27.0-31.0); MEAN CORPUSCULAR HGB CONC 34.1 G/DL (33.0-37.0); MEAN CORPUSCULAR VOLUME 87.2 FL (81.0-99.0); MEAN PLATELET VOLUME 6.9 FL (7.4-10.4); PLATELET COUNT 209 /CUMM (130-400); RBC DISTRIBUTION WIDTH 13.1 % (11.5-14.5); RED BLOOD CELL CT 3.38 /CUMM (4.20-5.40); WHITE BLOOD CELL COUNT 5.1 /CUMM (4.8-10.8)
[2018-03-23 08:01] LABS: ABSOLUTE LYMPH COUNT 1.5 /CUMM (1.2-3.4); BASOPHIL % 0.4 % (0.0-2.0)
--- NOTE | 2018-03-23 08:09 | PN- Medicine Consult ---
Caitlin MOREIRA,[facility] 03/23/18 0808: Assessment/PlanMedical Consult Assessment/Plan Assessment: Sheryl is a 73-year-old lady with past medical history significant for hyperlipidemia and hypothyroidism status post thyroidectomy for thyroid nodules 2009. She presented to ED with chief complaint of right upper quadrant abdominal pain associated with nausea and vomiting since Thursday night. Medical consult was placed for EKG changes. Patient has troponin of 0.02, EKG sinus rhythm with ST depression V4 and V5 (new since Dr. Snow physical 11/01), rate 79, QTc 450 Problem list #Transaminitis #Acute cholecystitis #New EKG changes mild ST depression in lateral precordial leads with no clinical symptoms of chronic artery disease #Hypo-kalemia Recommendation -Trops and EKG 3 negative -Cardiac consultation was placed pending cardiac clearance for laparoscopy cholecystectomy -Replete potassium and check magnesium and replete to keep it above 2 -Continue Synthroid -Management of acute cholecystitis per surgical team -DVT prophylaxis heparin subcutaneous and Alps Plan: As above Subjective Subjective: Patient was seen and examined this morning, laying comfortably in bed, vital signs are stable, afebrile, denied any chills, severe abdominal pain, nausea or vomiting. Patient is nothing by mouth. Patient reported having bowel movement of normal color, slightly softer than usual. Urine color is almost back to normal. Review of Systems Constitutional: Reports: see HPI. Objective Last 24 Hrs of Vital Signs/I&O Vital Signs Date Time Temp Pulse Resp B/P B/P Pulse O2 O2 Flow FiO2 Mean Ox Delivery Rate 03/23 0718 98.5 65 18 100/62 97 Room Air 03/22 2312 98.2 50 19 124/78 97 03/22 1900 98.4 66 18 124/58 98 03/22 1543 97.8 73 20 118/58 97 Room Air 03/22 1431 98.1 62 20 116/64 98 Room Air 03/22 1246 98.0 62 20 107/62 100 Room Air 03/22 1054 98.7 68 20 125/61 98 Room Air Intake & Output 03/23 1600 08 0800 / 0000 Intake Total 800 200 Output Total Balance 800 200 Intake, IV 800 200 Intake, Oral 0 0 Patient 63.957 kg Weight Weight Bed scale Measurement Method Physical Exam General Appearance: well developed/nourished, no apparent distress, alert, awake Head: atraumatic, normal appearance Ears, Nose, Throat: normal pharynx, normal ENT inspection, hearing grossly normal Neck: normal inspection, supple, full range of motion Cardiovascular: regular rate/rhythm Respiratory: normal breath sounds, chest non-tender, no respiratory distress Abdomen: normal bowel sounds, soft, mild tenderness in RUQ Donovan's sign negative Back: normal inspection, normal range of motion Extremities: normal inspection, normal capillary refill, normal range of motion, no edema Skin: intact, normal color, warm/dry Current Medications: Current Medications Sig/Michael Start time Last Medication Dose Route Stop Time Status Admin Acetaminophen 1,000 MG .STK-MED ONE 03/24 0602 DC IV 03/24 0603 Acetaminophen 1,000 MG Q6P PRN 03/22 1445 DCD 03/24 N/A 1 UNIT IV 0610 Ampicillin Sodium/ 3,000 MG Q6 03/22 1800 DC 03/24 Sulbactam Sodium IV 0551 Sodium Chloride 100 ML Docusate Sodium 100 MG TID 03/22 2100 DCD 03/24 PO 0909 Heparin Sodium 5,000 UNIT Q8 03/22 1432 DCD 03/24 (Porcine) SC 0550 Ibuprofen 400 MG .STK-MED ONE 03/24 1119 DC PO 03/24 1120 Levothyroxine Sodium 0.075 MG DAILY AC 03/23 0700 DCD 03/24 PO 0550 Melatonin 5 MG AT BEDTIME 03/23 2100 DCD 03/23 PO 2115 Morphine Sulfate 2 MG Q4P PRN 03/22 1445 DCD IV Ondansetron HCl 4 MG Q6P PRN 03/22 1445 DCD IV Pantoprazole Sodium 40 MG DAILY 03/22 1659 DCD 03/24 IV 0909 Potassium Chloride 40 MEQ ONCE ONE 03/23 2030 DC 03/23 PO 03/23 203 202 Potassium Chloride 20 MEQ Q10H 03/23 1000 DC 05 Dextrose/Sodium 1,000 ML IV 2047 Chloride Results Last 24 Hrs Lab/Abelardo Results: 111 Laboratory Tests 03/24/18 0642: Anion Gap 11, Estimated GFR > 60, BUN/Creatinine Ratio 26.0 H, Total Bilirubin 0.6, Direct Bilirubin 0.5 H, AST 91 H, ALT 129 H, Alkaline Phosphatase 197 H , Total Protein 5.3 L, Albumin 2.9 L, CBC w Diff NO MAN DIFF REQ, RBC 3.46 L, MCV 87.3, MCH 29.7, MCHC 34.0, RDW 13.2, MPV 7.3 L, Gran % 79.5 H, Lymphocytes % 15.8 L, Monocytes % 4.4, Eosinophils % 0, Basophils % 0.3, Absolute Granulocytes 4.1, Absolute Lymphocytes 0.8 L, Absolute Monocytes 0.2, Absolute Eosinophils 0, Absolute Basophils 0 Jose Westfall MD 03/23/18 1744: Attending MD Review Statement Attending Sign Off Attending Cosign Statement: I have: examined this patient, reviewed avalbl EMR data, personally reviewd images, discussd w/resident/PA/DYE LINE OPERATOR, discussed mgmt plan w/maki, discussed mgmt plan w/pt, agreed w/resident/PA/DYE LINE OPERATOR, amended to note. Other Findings: The patient was seen and discussed with house staff. Appreciate Cardiology input from Dr. Jackson. Patient is medically stable for planned laparoscopic cholecystectomy.
--- NOTE | 2018-03-23 08:24 | PN- General Surgery ---
Subjective Subjective: Reports ongoing abdominal discomfort. Currently npo. No chest pains. No shortness of breath. No dizziness. Out of bed to bathroom. Objective Vital Signs and I&Os Vital Signs Date Time Temp Pulse Resp B/P B/P Pulse O2 O2 Flow FiO2 Mean Ox Delivery Rate 03/23 718 98.5 65 18 100/62 97 Room Air 03/22 2312 98.2 50 19 124/78 97 / 1900 98.4 66 18 124/58 98 03/22 1543 97.8 73 20 118/58 97 Room Air 03/22 1431 98.1 62 20 116/64 98 Room Air 03/22 1246 98.0 62 20 107/62 100 Room Air 03/22 1054 98.7 68 20 125/61 98 Room Air Intake & Output 03/23 1600 03/23 0800 03/23 0000 03/22 1600 03/22 0800 03/22 0000 Intake Total 800 200 Output Total Balance 800 200 Intake, IV 800 200 Intake, Oral 0 0 Patient 141 lb 140 lb Weight Weight Bed scale Reported by Patient Measurement Method Physical Exam: General - alert & oriented x 3. comfortable. no acute distress. Lungs - clear bilaterally Cardiac - s1s2. reg. Abdomen - soft. right upper quadrant tenderness. Extremities - warm bilaterally. no c/c/e. calves soft and nontender b/l. Current Medications: Current Medications Sig/Michael Start time Last Medication Dose Route Stop Time Status Admin Acetaminophen 1,000 MG Q6P PRN 03/22 1445 AC N/A 1 UNIT IV Acetaminophen 0 .STK-MED ONE 03/22 1132 DC IV Acetaminophen 1,000 MG ONCE ONE 03/22 1115 DC 03/22 N/A 1 UNIT IV 03/22 1129 1151 Ampicillin Sodium/ 3,000 MG Q6 03/22 1800 AC 03/23 Sulbactam Sodium IV 0519 Sodium Chloride 100 ML Ampicillin Sodium/ 0 .STK-MED ONE 03/22 1800 DC Sulbactam Sodium .ROUTE Ampicillin Sodium/ 0 .STK-MED ONE 03/22 1410 DC Sulbactam Sodium .ROUTE Ampicillin Sodium/ 3,000 MG ONCE ONE 03/22 1400 DC / Sulbactam Sodium IV 03/22 1429 1406 Sodium Chloride 100 ML Dextrose/Sodium 1,000 ML Q10H 03/22 1430 DC 03/23 Chloride IV 0901 Docusate Sodium 100 MG TID 03/22 2100 AC 03/23 PO 0901 Heparin Sodium 0 .STK-MED ONE 03/22 1450 DC (Porcine) .ROUTE Heparin Sodium 5,000 UNIT Q8 03/22 1432 AC 03/22 (Porcine) SC 1444 Levothyroxine Sodium 0.075 MG DAILY AC 03/23 0700 AC 03/23 PO 0520 Morphine Sulfate 2 MG Q4P PRN 03/22 1445 AC IV Ondansetron HCl 4 MG Q6P PRN 03/22 1445 AC IV Pantoprazole Sodium 0 .STK-MED ONE 03/22 1800 DC IV Pantoprazole Sodium 40 MG DAILY 03/22 1659 AC 03/23 IV 0901 Potassium Chloride 10 MEQ Q1H 03/23 1000 AC IV 03/23 1101 Potassium Chloride 20 MEQ Q10H 03/23 1000 AC Dextrose/Sodium 1,000 ML IV Chloride Potassium Chloride 0 .STK-MED ONE 03/22 1811 DC PO Potassium Chloride 20 MEQ ONCE ONE 03/22 1800 DC 03/22 PO 03/22 1801 1804 Potassium Chloride 0 .STK-MED ONE 03/22 1544 DC IV Potassium Chloride 10 MEQ ONCE ONE 03/22 1515 DC 03/22 IV 03/22 1516 1543 Results Last 48 Hours of Labs: Laboratory Tests 03/23 03/23 03/22 0658 0210 1915 Chemistry Sodium (137 - 145 mmol/L) 142 Potassium (3.5 - 5.1 mmol/L) 3.3 L Chloride (98 - 107 mmol/L) 106 Carbon Dioxide (22 - 30 mmol/L) 25 Anion Gap (5 - 16) 12 BUN (7 - 17 mg/dL) 15 Creatinine (0.5 - 1.0 mg/dL) 0.5 Estimated GFR (>60 ml/min) > 60 BUN/Creatinine Ratio (7 - 25 %) 30.0 H Total Bilirubin (0.2 - 1.3 mg/dL) 0.8 Direct Bilirubin (< 0.4 mg/dL) 0.5 H AST (14 - 36 U/L) 60 H ALT (9 - 52 U/L) 99 H Alkaline Phosphatase (<127 U/L) 160 H Troponin I (< 0.11 ng/ml) < 0.01 < 0.01 Total Protein (6.3 - 8.2 g/dL) 5.7 L Albumin (3.5 - 5.0 g/dL) 3.1 L Lipase (23 - 300 U/L) < 10 L TSH (0.270 - 4.200 uIU/mL) 3.050 Hematology CBC w Diff NO MAN DIFF REQ WBC (4.8 - 10.8 /CUMM) 5.1 RBC (4.20 - 5.40 /CUMM) 3.38 L Hgb (12.0 - 16.0 G/DL) 10.0 L Hct (37 - 47 %) 29.5 L MCV (81.0 - 99.0 FL) 87.2 MCH (27.0 - 31.0 PG) 29.7 MCHC (33.0 - 37.0 G/DL) 34.1 RDW (11.5 - 14.5 %) 13.1 Plt Count (130 - 400 /CUMM) 209 MPV (7.4 - 10.4 FL) 6.9 L Gran % (42.2 - 75.2 %) 58.8 Lymphocytes % (20.5 - 51.1 %) 28.8 Monocytes % (1.7 - 9.3 %) 8.1 Eosinophils % (0 - 5 %) 3.9 Basophils % (0.0 - 2.0 %) 0.4 Absolute Granulocytes (1.4 - 6.5 /CUMM) 3.0 Absolute Lymphocytes (1.2 - 3.4 /CUMM) 1.5 Absolute Monocytes (0.10 - 0.60 /CUMM) 0.4 Absolute Eosinophils (0.0 - 0.7 /CUMM) 0.2 Absolute Basophils (0.0 - 0.2 /CUMM) 0 03/22 03/22 1028 0945 Chemistry Sodium (137 - 145 mmol/L) 137 Potassium (3.5 - 5.1 mmol/L) 3.3 L Chloride (98 - 107 mmol/L) 101 Carbon Dioxide (22 - 30 mmol/L) 24 Anion Gap (5 - 16) 12 BUN (7 - 17 mg/dL) 24 H Creatinine (0.5 - 1.0 mg/dL) 0.8 Estimated GFR (>60 ml/min) > 60 BUN/Creatinine Ratio (7 - 25 %) 30.0 H Glucose (65 - 99 mg/dL) 102 H Calcium (8.4 - 10.2 mg/dL) 8.9 Magnesium (1.6 - 2.3 mg/dL) 1.9 Total Bilirubin (0.2 - 1.3 mg/dL) 1.7 H Direct Bilirubin (< 0.4 mg/dL) 0.7 H AST (14 - 36 U/L) 107 H ALT (9 - 52 U/L) 141 H Alkaline Phosphatase (<127 U/L) 151 H Troponin I (< 0.11 ng/ml) 0.02 Total Protein (6.3 - 8.2 g/dL) 6.5 Albumin (3.5 - 5.0 g/dL) 3.9 Globulin (1.9 - 4.2 gm/dL) 2.6 Albumin/Globulin Ratio (1.1 - 2.2 %) 1.5 Lipase (23 - 300 U/L) 13 L Coagulation PT (9.4 - 12.5 SEC) 12.6 H INR (0.90 - 1.19) 1.15 APTT (25 - 37 SEC) 27 Hematology CBC w Diff NO MAN DIFF REQ WBC (4.8 - 10.8 /CUMM) 7.0 RBC (4.20 - 5.40 /CUMM) 3.68 L Hgb (12.0 - 16.0 G/DL) 10.8 L Hct (37 - 47 %) 32.5 L MCV (81.0 - 99.0 FL) 88.4 MCH (27.0 - 31.0 PG) 29.3 MCHC (33.0 - 37.0 G/DL) 33.1 RDW (11.5 - 14.5 %) 13.2 Plt Count (130 - 400 /CUMM) 221 MPV (7.4 - 10.4 FL) 6.6 L Gran % (42.2 - 75.2 %) 71.2 Lymphocytes % (20.5 - 51.1 %) 18.6 L Monocytes % (1.7 - 9.3 %) 8.1 Eosinophils % (0 - 5 %) 1.7 Basophils % (0.0 - 2.0 %) 0.4 Absolute Granulocytes (1.4 - 6.5 /CUMM) 5.0 Absolute Lymphocytes (1.2 - 3.4 /CUMM) 1.3 Absolute Monocytes (0.10 - 0.60 /CUMM) 0.6 Absolute Eosinophils (0.0 - 0.7 /CUMM) 0.1 Absolute Basophils (0.0 - 0.2 /CUMM) 0 Urines Urinalysis MOD H Urine Color (YEL,AMB,STR) YEL Urine Clarity (CLEAR) CLEAR Urine pH (5.0 - 8.0) 6.0 Ur Specific [place] (1.001 - 1.035) 1.010 Urine Protein (NEG,<30 MG/DL) TRACE H Urine Ketones (NEG) NEG Urine Nitrite (NEG) NEG Urine Bilirubin (NEG) NEG Urine Urobilinogen (0.1 - 1.0 EU/dl) 0.2 Ur Leukocyte Esterase (NEG) TRACE H Ur Microscopic SEDIMENT EXAMINED Urine RBC (0 - 5 /HPF) 10-15 H Urine WBC (0 - 2 /HPF) RARE Ur Epithelial Cells (NONE,FEW) FEW Urine Bacteria (NEG/NONE) FEW H Urine Hemoglobin (NEG) LARGE H Urine Glucose (N MG/DL) NEG Assessment/Plan Assessment/Plan This 73 year old female with hx of hyperlipidemia and hypothyroidism (s/p partial thyroidectomy due to benign nodules) who presented acute cholecystitis and transaminitis, with EKG changes in the ED showing mild ST depressions in the inferior and lateral precordial leads (new since Dr. Snow physical 11/01) without cardiac symptoms, and hypokalemia currently npo / ivf iv unasyn for acute cholecystitis improved transaminitis today. troponins negative x 3 replete k. check mg called for pre-op risk assessment / clearance, ?need for echo hep sc - dvt ppx will need lap doris when cleared d/w Core Measures Venous Thromboembolism VTE Risk Factors Surgery No Mechanical VTE Prophylaxis d/t N/A MechProphylax Ordered No VTE Pharm Prophylaxis d/t NA PharmProphylax ordered
--- NOTE | 2018-03-23 12:10 | Cons- Cardiology ---
Donavon Jackson MD 03/23/18 1153: General Information and HPI Consulting Request Date of Consult: 03/23/18 Requested By: Jalyn Reason for Consult: Preoperative cardiac evaluation History of Present Illness: The patient is a 73-year-old female with history of hyperlipidemia and hypothyroidism who is admitted for acute cholecystitis, and is planned for cholecystectomy. She complains of right upper quadrant pain which has been intermittent for the past few days. She also notes nausea vomiting. She has no cardiac history, and she denies any cardiac symptoms. No chest pain. No shortness of breath. No diaphoresis. She reports good functional status. She is able to walk multiple blocks or climb several flights of stairs without symptoms. No palpitations. No syncope. No orthopnea. Allergies/Medications Allergies: Coded Allergies: iodine (RASH 04/08/17) ALLERGY TO IODINE DYE Home Med List: Calcium (Elemental-Fr Calcarb) (Calcium) 600 MG CALCIUM (1,500 MG) TABLET 1 TAB PO DAILY VITAMIN SUPPORT (Reported) Cholecalciferol (Vitamin D3) (Vitamin D) 2,000 UNIT CAPSULE 1 CAP PO DAILY SUPP (Reported) Docusate Sodium (Colace) 100 MG CAPSULE 1 CAP PO TID constipation DISCONTINUE USE IF YOU DEVELOP LOOSE STOOL OR DIARRHEA Levothyroxine Sodium 75 MCG TABLET 1 TAB PO DAILY AC THYROID (Reported) Multivitamin (Daily Value) 1 EACH TABLET 1 TAB PO DAILY VITAMIN SUPPORT ( Reported) Polyethylene Glycol 3350 (Miralax) 17 GRAM POWD.PACK 1 PAC PO DAILY CONSTIPATION dissolve in water, DISCONTINUE USE IF YOU DEVELOP LOOSE STOOL OR DIARRHEA Current Medications: Current Medications Sig/Michael Start time Last Medication Dose Route Stop Time Status Admin Acetaminophen 1,000 MG Q6P PRN 03/22 1445 AC N/A 1 UNIT IV Ampicillin Sodium/ 3,000 MG Q6 03/22 1800 AC 03/23 Sulbactam Sodium IV 0519 Sodium Chloride 100 ML Ampicillin Sodium/ 0 .STK-MED ONE 03/22 1800 DC Sulbactam Sodium .ROUTE Ampicillin Sodium/ 0 .STK-MED ONE 03/22 1410 DC Sulbactam Sodium .ROUTE Ampicillin Sodium/ 3,000 MG ONCE ONE 03/22 1400 DC 03/22 Sulbactam Sodium IV 03/22 1429 1406 Sodium Chloride 100 ML Dextrose/Sodium 1,000 ML Q10H 03/22 1430 DC 03/23 Chloride IV 0901 Docusate Sodium 100 MG TID 03/22 2100 AC 03/23 PO 0901 Heparin Sodium 0 .STK-MED ONE 03/22 1450 DC (Porcine) .ROUTE Heparin Sodium 5,000 UNIT Q8 03/22 1432 AC 03/22 (Porcine) SC 1444 Levothyroxine Sodium 0.075 MG DAILY AC 03/23 0700 AC 03/23 PO 0520 Morphine Sulfate 2 MG Q4P PRN 03/22 1445 AC IV Ondansetron HCl 4 MG Q6P PRN 03/22 1445 AC IV Pantoprazole Sodium 0 .STK-MED ONE 03/22 1800 DC IV Pantoprazole Sodium 40 MG DAILY 03/22 1659 AC 03/23 IV 0901 Potassium Chloride 10 MEQ Q1H 03/23 1000 DC 03/23 IV 03/23 1101 1029 Potassium Chloride 20 MEQ Q10H 03/23 1000 AC 03/23 Dextrose/Sodium 1,000 ML IV 1030 Chloride Potassium Chloride 0 .STK-MED ONE 03/22 1811 DC PO Potassium Chloride 20 MEQ ONCE ONE 03/22 1800 DC 03/22 PO 03/22 1801 1804 Potassium Chloride 0 .STK-MED ONE 03/22 1544 DC IV Potassium Chloride 10 MEQ ONCE ONE 03/22 1515 DC 03/22 IV 03/22 1516 1543 Review of Systems Review of Systems: No fever. No chills. No rash. No tremor. All other systems were reviewed, and were noted to be negative. Past History Travel History Traveled to [place] past 21 day No Medical History Blood Transfusion Hx: No Neurological: NONE EENT: NONE Cardiovascular: NONE Respiratory: NONE Gastrointestinal: NONE Hepatic: NONE Renal: NONE Musculoskeletal: NONE Psychiatric: NONE Endocrine: hypothyroidism Blood Disorders: NONE Cancer(s): NONE [employer]ATING [employer]/Reproductive: NONE Surgical History Surgical History: 2010-THYROIDECTOMY 2012 KNEE SURGERY 2014 TOE SURGERY Family History Relations & Conditions If Any: FATHER FH: colon cancer Psychosocial History Where Do You Live? Home Smoking Status: Never Smoked Exam & Diagnostic Data Vital Signs and I&O Vital Signs Date Time Temp Pulse Resp B/P B/P Pulse O2 O2 Flow FiO2 Mean Ox Delivery Rate 03/23 718 98.5 65 18 100/62 97 Room Air 03/22 2312 98.2 50 19 124/78 97 03/22 1900 98.4 66 18 124/58 98 03/22 1543 97.8 73 20 118/58 97 Room Air 03/22 1431 98.1 62 20 116/64 98 Room Air 03/22 1246 98.0 62 20 107/62 100 Room Air Intake & Output 03/23 0800 03/23 0000 03/22 1600 03/22 0803/22 0000 Intake Total 800 200 Output Total Balance 800 200 Intake, IV 800 200 Intake, Oral 0 0 Patient 141 lb 140 lb Weight Weight Bed scale Reported by Patient Measurement Method Physical Exam: Gen: The patient is in no acute distress HEENT: Normal nose, ears, and oropharynx. Pupils equal bilaterally. Conjunctiva normal. Neck: Supple with no JVD, no masses, and no thyromegaly Lungs: Clear to auscultation with normal respiratory effort Heart: RRR, S1, S2, no murmurs. No peripheral edema, 2+ pulses in the lower extremities bilaterally Abdomen: Right upper quadrant tenderness, no hepatomegaly. No splenomegaly Extremities: No clubbing or cyanosis. Normal muscle strength in the upper and lower extremities Skin: Normal skin turgor with no skin ulcers or lesions noted. Neuro: Cranial nerves intact. Sensation intact Psych: Alert and oriented x 3 with appropriate affect Labs/Abelardo Results: Laboratory Tests 03/23 03/23 03/22 0658 0210 1915 Chemistry Sodium (137 - 145 mmol/L) 142 Potassium (3.5 - 5.1 mmol/L) 3.3 L Chloride (98 - 107 mmol/L) 106 Carbon Dioxide (22 - 30 mmol/L) 25 Anion Gap (5 - 16) 12 BUN (7 - 17 mg/dL) 15 Creatinine (0.5 - 1.0 mg/dL) 0.5 Estimated GFR (>60 ml/min) > 60 BUN/Creatinine Ratio (7 - 25 %) 30.0 H Magnesium (1.6 - 2.3 mg/dL) 1.8 Total Bilirubin (0.2 - 1.3 mg/dL) 0.8 Direct Bilirubin (< 0.4 mg/dL) 0.5 H AST (14 - 36 U/L) 60 H ALT (9 - 52 U/L) 99 H Alkaline Phosphatase (<127 U/L) 160 H Troponin I (< 0.11 ng/ml) < 0.01 < 0.01 Total Protein (6.3 - 8.2 g/dL) 5.7 L Albumin (3.5 - 5.0 g/dL) 3.1 L Lipase (23 - 300 U/L) < 10 L TSH (0.270 - 4.200 uIU/mL) 3.050 Hematology CBC w Diff NO MAN DIFF REQ WBC (4.8 - 10.8 /CUMM) 5.1 RBC (4.20 - 5.40 /CUMM) 3.38 L Hgb (12.0 - 16.0 G/DL) 10.0 L Hct (37 - 47 %) 29.5 L MCV (81.0 - 99.0 FL) 87.2 MCH (27.0 - 31.0 PG) 29.7 MCHC (33.0 - 37.0 G/DL) 34.1 RDW (11.5 - 14.5 %) 13.1 Plt Count (130 - 400 /CUMM) 209 MPV (7.4 - 10.4 FL) 6.9 L Gran % (42.2 - 75.2 %) 58.8 Lymphocytes % (20.5 - 51.1 %) 28.8 Monocytes % (1.7 - 9.3 %) 8.1 Eosinophils % (0 - 5 %) 3.9 Basophils % (0.0 - 2.0 %) 0.4 Absolute Granulocytes (1.4 - 6.5 /CUMM) 3.0 Absolute Lymphocytes (1.2 - 3.4 /CUMM) 1.5 Absolute Monocytes (0.10 - 0.60 /CUMM) 0.4 Absolute Eosinophils (0.0 - 0.7 /CUMM) 0.2 Absolute Basophils (0.0 - 0.2 /CUMM) 0 03/22 03/22 1028 0945 Chemistry Sodium (137 - 145 mmol/L) 137 Potassium (3.5 - 5.1 mmol/L) 3.3 L Chloride (98 - 107 mmol/L) 101 Carbon Dioxide (22 - 30 mmol/L) 24 Anion Gap (5 - 16) 12 BUN (7 - 17 mg/dL) 24 H Creatinine (0.5 - 1.0 mg/dL) 0.8 Estimated GFR (>60 ml/min) > 60 BUN/Creatinine Ratio (7 - 25 %) 30.0 H Glucose (65 - 99 mg/dL) 102 H Calcium (8.4 - 10.2 mg/dL) 8.9 Magnesium (1.6 - 2.3 mg/dL) 1.9 Total Bilirubin (0.2 - 1.3 mg/dL) 1.7 H Direct Bilirubin (< 0.4 mg/dL) 0.7 H AST (14 - 36 U/L) 107 H ALT (9 - 52 U/L) 141 H Alkaline Phosphatase (<127 U/L) 151 H Troponin I (< 0.11 ng/ml) 0.02 Total Protein (6.3 - 8.2 g/dL) 6.5 Albumin (3.5 - 5.0 g/dL) 3.9 Globulin (1.9 - 4.2 gm/dL) 2.6 Albumin/Globulin Ratio (1.1 - 2.2 %) 1.5 Lipase (23 - 300 U/L) 13 L Coagulation PT (9.4 - 12.5 SEC) 12.6 H INR (0.90 - 1.19) 1.15 APTT (25 - 37 SEC) 27 Hematology CBC w Diff NO MAN DIFF REQ WBC (4.8 - 10.8 /CUMM) 7.0 RBC (4.20 - 5.40 /CUMM) 3.68 L Hgb (12.0 - 16.0 G/DL) 10.8 L Hct (37 - 47 %) 32.5 L MCV (81.0 - 99.0 FL) 88.4 MCH (27.0 - 31.0 PG) 29.3 MCHC (33.0 - 37.0 G/DL) 33.1 RDW (11.5 - 14.5 %) 13.2 Plt Count (130 - 400 /CUMM) 221 MPV (7.4 - 10.4 FL) 6.6 L Gran % (42.2 - 75.2 %) 71.2 Lymphocytes % (20.5 - 51.1 %) 18.6 L Monocytes % (1.7 - 9.3 %) 8.1 Eosinophils % (0 - 5 %) 1.7 Basophils % (0.0 - 2.0 %) 0.4 Absolute Granulocytes (1.4 - 6.5 /CUMM) 5.0 Absolute Lymphocytes (1.2 - 3.4 /CUMM) 1.3 Absolute Monocytes (0.10 - 0.60 /CUMM) 0.6 Absolute Eosinophils (0.0 - 0.7 /CUMM) 0.1 Absolute Basophils (0.0 - 0.2 /CUMM) 0 Urines Urinalysis MOD H Urine Color (YEL,AMB,STR) YEL Urine Clarity (CLEAR) CLEAR Urine pH (5.0 - 8.0) 6.0 Ur Specific [place] (1.001 - 1.035) 1.010 Urine Protein (NEG,<30 MG/DL) TRACE H Urine Ketones (NEG) NEG Urine Nitrite (NEG) NEG Urine Bilirubin (NEG) NEG Urine Urobilinogen (0.1 - 1.0 EU/dl) 0.2 Ur Leukocyte Esterase (NEG) TRACE H Ur Microscopic SEDIMENT EXAMINED Urine RBC (0 - 5 /HPF) 10-15 H Urine WBC (0 - 2 /HPF) RARE Ur Epithelial Cells (NONE,FEW) FEW Urine Bacteria (NEG/NONE) FEW H Urine Hemoglobin (NEG) LARGE H Urine Glucose (N MG/DL) NEG Diagnostic Data EKG Results EKG tracings independently reviewed, and reveals normal sinus rhythm at 65 with possible septal infarct age undetermined and mild ST depression in the anterior leads which is new compared to 2012 Other Results Abdominal ultrasound: The gallbladder is enlarged with marked wall thickening and intraluminal gallstones and sludge. There is no sonographic evidence of ductal dilatation. Findings remain concerning for acute cholecystitis. CT scan of the abdomen and pelvis: There is a markedly distended gallbladder with gallbladder wall thickening, as well as periportal fluid in the setting of scattered gallstones, suggestive of acute cholecystitis. There appears to be mild intra and extrahepatic biliary ductal dilatation. This was discussed with CANDY Wayne at 12:50 PM on 03/22/2018. Nonvisualization of the appendix. No right lower quadrant inflammatory change is visualized. The pancreas appears largely fatty atrophied. There is either a pancreatic cyst or focal pancreatic ductal dilatation measuring 8 mm at the level of the distal pancreatic body. Assessment/Plan Assessment/Plan The patient is a 73-year-old female with no cardiac history presenting with acute cholecystitis, plan for surgery. She is noted to have mild ST depression and possible old anteroseptal infarct on EKG. She describes excellent functional status with ability to climb several flights of stairs or walk multiple blocks. She has not had any cardiac symptoms. Recommendations: * Her cardiac risk for surgery is acceptable, and she is cleared from a cardiac standpoint to proceed with the planned cholecystectomy. * I recommend outpatient evaluation with echocardiogram and nuclear stress test postoperatively given the abnormal EKG. Consult Acknowledgment - Thank you for your consult request. Jamari MOREIRA,Navin 03/23/18 1215: Assessment/Plan Consult Acknowledgment - Thank you for your consult request.
[2018-03-23 15:26] VITALS: BP 116/80
[2018-03-23 20:20] VITALS: BP 126/70
--- NOTE | 2018-03-23 20:31 | PN- General Surgery ---
Subjective Subjective: POST-OP CHECK PT IN BED WITH ONLY COMPLAINT OF PAIN IN RIGHT ARM WHERE IV IS WITH POTASSIUM RUNNING IN. NO NAUSEA/VOMITING. SOME MILD DIZZINESS. OOB, ABD PAIN MINIMAL. DUE TO VOID Objective Vital Signs and I&Os Vital Signs Date Time Temp Pulse Resp B/P B/P Pulse O2 O2 Flow FiO2 Mean Ox Delivery Rate 03/23 2020 98.7 72 18 126/70 97 03/23 1526 98.6 71 16 116/80 99 Room Air 03/23 718 98.5 65 18 100/62 97 Room Air 03/22 2312 98.2 50 19 124/78 97 Intake & Output 03/23 1600 03/23 0800 03/23 0000 03/22 1600 03/22 0000 Intake Total 800 800 200 Output Total 600 Balance 200 800 200 Intake, IV 800 800 200 Intake, Oral 0 0 0 Output, Urine 600 Patient 141 lb 140 lb Weight Weight Bed scale Reported by Patient Measurement Method Physical Exam: GEN- NAD RESP- CLEAR CARDIAC-RRR ABD- ND, +BS, SOFT, APPROPRIATELY TENDER. BANDAIDS CLEAN AND DRY Current Medications: Current Medications Sig/Michael Start time Last Medication Dose Route Stop Time Status Admin Acetaminophen 1,000 MG Q6P PRN 03/22 1445 AC N/A 1 UNIT IV Ampicillin Sodium/ 3,000 MG Q6 03/22 1800 AC 03/23 Sulbactam Sodium IV 1243 Sodium Chloride 100 ML Dextrose/Sodium 1,000 ML Q10H 03/22 1430 DC 03/23 Chloride IV 0901 Docusate Sodium 100 MG TID 03/22 2100 AC 03/23 PO 2018 Heparin Sodium 5,000 UNIT Q8 03/22 1432 AC 03/23 (Porcine) SC 2018 Levothyroxine Sodium 0.075 MG DAILY AC 03/23 0700 AC 03/23 PO 0520 Melatonin 5 MG AT BEDTIME 03/23 2100 UNVr PO Morphine Sulfate 2 MG Q4P PRN 03/22 1445 AC IV Ondansetron HCl 4 MG Q6P PRN 03/22 1445 AC IV Pantoprazole Sodium 40 MG DAILY 03/22 1659 AC 03/23 IV 0901 Potassium Chloride 40 MEQ ONCE ONE 03/23 2030 UNVr PO 03/23 2031 Potassium Chloride 10 MEQ Q1H 03/23 1000 DC 03/23 IV 03/23 1101 1029 Potassium Chloride 20 MEQ Q10H 03/23 1000 r 03/23 Dextrose/Sodium 1,000 ML IV 1030 Chloride Results Last 48 Hours of Labs: Laboratory Tests 03/23 03/23 03/22 0658 0210 1915 Chemistry Sodium (137 - 145 mmol/L) 142 Potassium (3.5 - 5.1 mmol/L) 3.3 L Chloride (98 - 107 mmol/L) 106 Carbon Dioxide (22 - 30 mmol/L) 25 Anion Gap (5 - 16) 12 BUN (7 - 17 mg/dL) 15 Creatinine (0.5 - 1.0 mg/dL) 0.5 Estimated GFR (>60 ml/min) > 60 BUN/Creatinine Ratio (7 - 25 %) 30.0 H Magnesium (1.6 - 2.3 mg/dL) 1.8 Total Bilirubin (0.2 - 1.3 mg/dL) 0.8 Direct Bilirubin (< 0.4 mg/dL) 0.5 H AST (14 - 36 U/L) 60 H ALT (9 - 52 U/L) 99 H Alkaline Phosphatase (<127 U/L) 160 H Troponin I (< 0.11 ng/ml) < 0.01 < 0.01 Total Protein (6.3 - 8.2 g/dL) 5.7 L Albumin (3.5 - 5.0 g/dL) 3.1 L Lipase (23 - 300 U/L) < 10 L TSH (0.270 - 4.200 uIU/mL) 3.050 Hematology CBC w Diff NO MAN DIFF REQ WBC (4.8 - 10.8 /CUMM) 5.1 RBC (4.20 - 5.40 /CUMM) 3.38 L Hgb (12.0 - 16.0 G/DL) 10.0 L Hct (37 - 47 %) 29.5 L MCV (81.0 - 99.0 FL) 87.2 MCH (27.0 - 31.0 PG) 29.7 MCHC (33.0 - 37.0 G/DL) 34.1 RDW (11.5 - 14.5 %) 13.1 Plt Count (130 - 400 /CUMM) 209 MPV (7.4 - 10.4 FL) 6.9 L Gran % (42.2 - 75.2 %) 58.8 Lymphocytes % (20.5 - 51.1 %) 28.8 Monocytes % (1.7 - 9.3 %) 8.1 Eosinophils % (0 - 5 %) 3.9 Basophils % (0.0 - 2.0 %) 0.4 Absolute Granulocytes (1.4 - 6.5 /CUMM) 3.0 Absolute Lymphocytes (1.2 - 3.4 /CUMM) 1.5 Absolute Monocytes (0.10 - 0.60 /CUMM) 0.4 Absolute Eosinophils (0.0 - 0.7 /CUMM) 0.2 Absolute Basophils (0.0 - 0.2 /CUMM) 0 03/22 03/22 1028 0945 Chemistry Sodium (137 - 145 mmol/L) 137 Potassium (3.5 - 5.1 mmol/L) 3.3 L Chloride (98 - 107 mmol/L) 101 Carbon Dioxide (22 - 30 mmol/L) 24 Anion Gap (5 - 16) 12 BUN (7 - 17 mg/dL) 24 H Creatinine (0.5 - 1.0 mg/dL) 0.8 Estimated GFR (>60 ml/min) > 60 BUN/Creatinine Ratio (7 - 25 %) 30.0 H Glucose (65 - 99 mg/dL) 102 H Calcium (8.4 - 10.2 mg/dL) 8.9 Magnesium (1.6 - 2.3 mg/dL) 1.9 Total Bilirubin (0.2 - 1.3 mg/dL) 1.7 H Direct Bilirubin (< 0.4 mg/dL) 0.7 H AST (14 - 36 U/L) 107 H ALT (9 - 52 U/L) 141 H Alkaline Phosphatase (<127 U/L) 151 H Troponin I (< 0.11 ng/ml) 0.02 Total Protein (6.3 - 8.2 g/dL) 6.5 Albumin (3.5 - 5.0 g/dL) 3.9 Globulin (1.9 - 4.2 gm/dL) 2.6 Albumin/Globulin Ratio (1.1 - 2.2 %) 1.5 Lipase (23 - 300 U/L) 13 L Coagulation PT (9.4 - 12.5 SEC) 12.6 H INR (0.90 - 1.19) 1.15 APTT (25 - 37 SEC) 27 Hematology CBC w Diff NO MAN DIFF REQ WBC (4.8 - 10.8 /CUMM) 7.0 RBC (4.20 - 5.40 /CUMM) 3.68 L Hgb (12.0 - 16.0 G/DL) 10.8 L Hct (37 - 47 %) 32.5 L MCV (81.0 - 99.0 FL) 88.4 MCH (27.0 - 31.0 PG) 29.3 MCHC (33.0 - 37.0 G/DL) 33.1 RDW (11.5 - 14.5 %) 13.2 Plt Count (130 - 400 /CUMM) 221 MPV (7.4 - 10.4 FL) 6.6 L Gran % (42.2 - 75.2 %) 71.2 Lymphocytes % (20.5 - 51.1 %) 18.6 L Monocytes % (1.7 - 9.3 %) 8.1 Eosinophils % (0 - 5 %) 1.7 Basophils % (0.0 - 2.0 %) 0.4 Absolute Granulocytes (1.4 - 6.5 /CUMM) 5.0 Absolute Lymphocytes (1.2 - 3.4 /CUMM) 1.3 Absolute Monocytes (0.10 - 0.60 /CUMM) 0.6 Absolute Eosinophils (0.0 - 0.7 /CUMM) 0.1 Absolute Basophils (0.0 - 0.2 /CUMM) 0 Urines Urinalysis MOD H Urine Color (YEL,AMB,STR) YEL Urine Clarity (CLEAR) CLEAR Urine pH (5.0 - 8.0) 6.0 Ur Specific [place] (1.001 - 1.035) 1.010 Urine Protein (NEG,<30 MG/DL) TRACE H Urine Ketones (NEG) NEG Urine Nitrite (NEG) NEG Urine Bilirubin (NEG) NEG Urine Urobilinogen (0.1 - 1.0 EU/dl) 0.2 Ur Leukocyte Esterase (NEG) TRACE H Ur Microscopic SEDIMENT EXAMINED Urine RBC (0 - 5 /HPF) 10-15 H Urine WBC (0 - 2 /HPF) RARE Ur Epithelial Cells (NONE,FEW) FEW Urine Bacteria (NEG/NONE) FEW H Urine Hemoglobin (NEG) LARGE H Urine Glucose (N MG/DL) NEG Assessment/Plan Assessment/Plan 73YO F WITH CHOLECYSTITIS SP LAP FRANCISCO POD0. STABLE WILL DC IV POTASSIUM AND SWITCH TO PO CLEAR LIQUIDS CONT IVF OVERNIGHT AM LABS FU EKG TONIGHT DVT PPX- HSQ AND ALPS OOB IS Core Measures Venous Thromboembolism VTE Risk Factors Surgery No Mechanical VTE Prophylaxis d/t N/A MechProphylax Ordered No VTE Pharm Prophylaxis d/t NA PharmProphylax ordered
[2018-03-23 22:14] VITALS: BP 108/69
[2018-03-24 07:21] VITALS: BP 122/72
[2018-03-24 08:05] LABS: ABSOLUTE BASOPHIL COUNT 0 /CUMM (0.0-0.2); ABSOLUTE EOSINOPHIL COUNT 0 /CUMM (0.0-0.7); ABSOLUTE GRANULOCYTE CT 4.1 /CUMM (1.4-6.5); ABSOLUTE LYMPH COUNT 0.8 /CUMM (1.2-3.4); ABSOLUTE MONOCYTE COUNT 0.2 /CUMM (0.10-0.60); BASOPHIL % 0.3 % (0.0-2.0); EOSINOPHIL % 0 % (0-5); GRANULOCYTE % 79.5 % (42.2-75.2); HEMATOCRIT 30.2 % (37-47); MEAN CORPUSCULAR HGB 29.7 PG (27.0-31.0); MEAN CORPUSCULAR VOLUME 87.3 FL (81.0-99.0); MEAN PLATELET VOLUME 7.3 FL (7.4-10.4); PLATELET COUNT 273 /CUMM (130-400); RBC DISTRIBUTION WIDTH 13.2 % (11.5-14.5); RED BLOOD CELL CT 3.46 /CUMM (4.20-5.40); WHITE BLOOD CELL COUNT 5.2 /CUMM (4.8-10.8)
--- NOTE | 2018-03-24 08:18 | PN- Medicine Consult ---
See Addendum Assessment/PlanMedical Consult Assessment/Plan Assessment: This is a 73-year-old lady with past medical history significant for hyperlipidemia and hypothyroidism status post thyroidectomy for thyroid nodules 2009 who presented to ED with chief complaint of right upper quadrant abdominal pain associated with nausea and vomiting. She is admitted to the surgical team for acute cholecystitis. Medical consult was placed for EKG changes. Patient was noted to have troponin of 0.02, EKG sinus rhythm with ST depression V4 and V5 (new since Dr. Snow physical 11/01), rate 79, QTc 450 Problem list #Transaminitis-worsening #Acute cholecystitis #New EKG changes mild ST depression in lateral precordial leads with no clinical symptoms of chronic artery disease #Hypokalemia-resolved Plan: Recommendation -Follow cardiology recs. -Monitor potassium and magnesium and replete accordingly(K>4, Mg>2) -Continue Synthroid -Management of acute cholecystitis per surgical team -DVT prophylaxis heparin subcutaneous and Alps Case to be discussed with attending Dr. Westfall. Please refer to his addendum for further recs. Problem List: 1. Acute cholecystitis Subjective Subjective: The patient was seen and examined. She offers no complaints. Denies any chills, severe abdominal pain, nausea or vomiting. Has tolerated clear liquid diet well. Reports having good appetite. Review of Systems Constitutional: Reports: no symptoms. Objective Last 24 Hrs of Vital Signs/I&O Vital Signs Date Time Temp Pulse Resp B/P B/P Pulse O2 O2 Flow FiO2 Mean Ox Delivery Rate 03/24 0721 97.7 66 20 122/72 99 Room Air 03/23 2214 98.4 63 22 108/69 95 03/23 2020 98.7 72 18 126/70 97 03/23 1526 98.6 71 16 116/80 99 Room Air Intake & Output 03/24 1600 03/24 0800 03/24 0000 Intake Total 1040 600 Output Total Balance 1040 600 Intake, IV 800 400 Intake, Oral 240 200 Patient 146 lb Weight Physical Exam General Appearance: no apparent distress, alert Other Physical Findings: Head: atraumatic, normal appearance Ears, Nose, Throat: normal pharynx, normal ENT inspection, hearing grossly normal Neck: normal inspection, supple, full range of motion Cardiovascular: regular rate/rhythm Respiratory: normal breath sounds, chest non-tender, no respiratory distress Abdomen: normal bowel sounds, soft, NT, ND Back: normal inspection, normal range of motion Extremities: normal inspection, normal capillary refill, normal range of motion, no edema Skin: intact, normal color, warm/dry Current Medications: Current Medications Sig/Michael Start time Last Medication Dose Route Stop Time Status Admin Acetaminophen 1,000 MG .STK-MED ONE 03/23 1427 DC IV 03/23 1428 Acetaminophen 1,000 MG Q6P PRN 03/22 1445 03/24 N/A 1 UNIT IV 0610 Ampicillin Sodium/ 3,000 MG Q6 03/22 1800 AC 03/24 Sulbactam Sodium IV 0551 Sodium Chloride 100 ML Dextrose/Sodium 1,000 ML Q10H 03/22 1430 DC 03/23 Chloride IV 0901 Docusate Sodium 100 MG TID 03/22 2100 AC 03/23 PO 2018 Fentanyl Citrate 250 MCG .STK-MED ONE 03/23 1427 DC IM 03/23 1428 Heparin Sodium 5,000 UNIT Q8 03/22 1432 AC 03/24 (Porcine) SC 0550 Hydromorphone HCl 2 MG .STK-MED ONE 03/23 1427 DC IM 03/23 1428 Levothyroxine Sodium 0.075 MG DAILY AC 03/23 0700 03/24 PO 0550 Melatonin 5 MG AT BEDTIME 03/23 2100 03/23 PO 2115 Midazolam HCl 2 MG .STK-MED ONE 03/23 1428 DC IM 03/23 1429 Morphine Sulfate 2 MG Q4P PRN 03/22 1445 IV Ondansetron HCl 4 MG Q6P PRN 03/22 1445 IV Pantoprazole Sodium 40 MG DAILY 03/22 1659 AC 03/23 IV 0901 Potassium Chloride 40 MEQ ONCE ONE 03/23 2030 DC 03/23 PO 03/23 203 2028 Potassium Chloride 10 MEQ Q1H 03/23 1000 DC 03/23 IV 03/23 1101 1029 Potassium Chloride 20 MEQ Q10H 03/23 1000 AC 03/23 Dextrose/Sodium 1,000 ML IV 2047 Chloride Results Last 24 Hrs Lab/Abelardo Results: Laboratory Tests 03/24/18 0642: Anion Gap 11, Estimated GFR > 60, BUN/Creatinine Ratio 26.0 H, Total Bilirubin 0.6, Direct Bilirubin 0.5 H, AST 91 H, ALT 129 H, Alkaline Phosphatase 197 H , Total Protein 5.3 L, Albumin 2.9 L, CBC w Diff NO MAN DIFF REQ, RBC 3.46 L, MCV 87.3, MCH 29.7, MCHC 34.0, RDW 13.2, MPV 7.3 L, Gran % 79.5 H, Lymphocytes % 15.8 L, Monocytes % 4.4, Eosinophils % 0, Basophils % 0.3, Absolute Granulocytes 4.1, Absolute Lymphocytes 0.8 L, Absolute Monocytes 0.2, Absolute Eosinophils 0, Absolute Basophils 0
--- NOTE | 2018-03-24 09:22 | PN- General Surgery ---
Subjective Subjective: POD#2 lap doris -doing well without complaints, pain controlled, feels hungry Objective Vital Signs and I&Os Vital Signs Date Time Temp Pulse Resp B/P B/P Pulse O2 O2 Flow FiO2 Mean Ox Delivery Rate 03/24 721 97.7 66 20 122/72 99 Room Air / 2214 98.4 63 22 108/69 95 / 2020 98.7 72 18 126/70 97 03/23 1526 98.6 71 16 116/80 99 Room Air Intake & Output 03/24 1600 03/24 0803/24 0000 / 1600 03/23 0000 Intake Total 1040 600 800 800 200 Output Total 600 Balance 1040 600 200 800 200 Intake, IV 800 400 800 800 200 Intake, Oral 240 200 0 0 0 Output, Urine 600 Patient 146 lb 141 lb Weight Weight Bed scale Measurement Method Physical Exam: abdomen - rounded with mild distention, sore throughtout, +BS, passing gas. portal sites CDI Physical Exam General Appearance: alert, awake, comfortable Assessment/Plan Assessment/Plan POD #2 Lap doris advance diet D/C fuids OOB D/C planning for home Core Measures Venous Thromboembolism VTE Risk Factors Surgery No Mechanical VTE Prophylaxis d/t N/A MechProphylax Ordered No VTE Pharm Prophylaxis d/t NA PharmProphylax ordered
--- NOTE | 2018-03-24 09:33 | Patient Discharge Instructions ---
Discharge Instructions General Discharge Information You were seen/treated for: inflamed gal bladder cholecystitis You had these procedures: laprascopic cholecyctectomy Watch for these problems: fevers, chills, wound drainage Call Surgeon to remove: [place] (wound check 2 weeks) Do not soak the wound: No Daily wet to dry dressings: No No bath, but you may shower: No (keep area dry with occlusive b) Activity Full Activity/No Limits: No (no strenuous activities, no li) Acute Coronary Syndrome Inclusion Criteria At DC or during hospital stay patient has or had the following: ACS DIAGNOSIS No Discharge Core Measures Meds if any: Prescribed or Continued at Discharge RICK/ARB if EF <40% Yes Aspirin No Beta-Grace No Statin No Meds if any: NOT Prescribed or Continued at Discharge Congestive Heart Failure Inclusion Criteria At DC or during hospital stay patient has or had the following: CHF DIAGNOSIS No Discharge Core Measures Meds if any: Prescribed or Continued at Discharge Meds if any: NOT Prescribed or Continued at Discharge Cerebrovascular accident Inclusion Criteria At DC or during hospital stay patient has or had the following: CVA/TIA Diagnosis No Discharge Core Measures Meds if any: Prescribed or Continued at Discharge Meds if any: NOT Prescribed or Continued at Discharge Venous thromboembolism Inclusion Criteria VTE Diagnosis No VTE Type NONE VTE Confirmed by (Test) NONE Discharge Core Measures - Per Current guidelines, there needs to be overlap - treatment for the first 5 days of Warfarin therapy. - If discharged on Warfarin prior to 5 days of - overlap therapy, the patient will need to be - assessed for post discharge needs including - *Post discharge parental anticoagulation - *Warfarin and/or parental anticoagulation education - *Follow up date to check INR post discharge At least 5 days overlap therapy as Inpatient No Meds if any: Prescribed or Continued at Discharge Warfarin No Note: Overlap Therapy is Warfarin and Anticoagulant Meds if any: NOT Prescribed or Continued at Discharge
--- NOTE | 2018-03-24 09:39 | Surg Short-stay <48hrs Dis Sum ---
Visit Information Visit Dates Admission Date: 03/22/18 Discharge Date: 03/24/2018 Surgical Short Stay DC Summary Admission Diagnosis: cholecystitis Final Diagnosis: same Procedure(s): lap doris Summary/Significant Findings: 73 y/o female seen in ER and dxed with cholecstitis. She was taken to OR and underwent a laproscopic cholecystectomy without incident. She was transferred to floor and diet was advanced. She tolarated this well without incident. She will need repeat LFTs done as an outpatient tomorrow Condition at Discharge: stable Discharge Disposition: home or self care Discharge instructions provided to patient/family: Yes Post discharge follow-up plan: see discharge instruction sheet Copies to: Jamari MOREIRA,Navin Rothman
[2018-03-24] MEDS ORDERED: PERCOCET 5-3251 EACH PO (11:56)
--- NOTE | 2018-03-24 12:52 | PN- Cardiology ---
Subjective Subjective: The patient is doing fine today day #2 postcholecystectomy. No cardiac symptoms noted. Objective Vital Signs and I&Os Vital Signs Date Time Temp Pulse Resp B/P B/P Pulse O2 O2 Flow FiO2 Mean Ox Delivery Rate 03/24 721 97.7 66 20 122/72 99 Room Air 03/23 2214 98.4 63 22 108/69 95 03/23 2020 98.7 72 18 126/70 97 03/23 1526 98.6 71 16 116/80 99 Room Air Intake & Output 03/24 1600 03/24 0803/24 0000 03/23 1600 03/23 0000 Intake Total 360 1040 600 800 800 200 Output Total 600 Balance 360 1040 600 200 800 200 Intake, IV 800 400 800 800 200 Intake, Oral 360 240 200 0 0 0 Output, Urine 600 Patient 146 lb 141 lb Weight Weight Bed scale Measurement Method Physical Exam: General Appearance: well developed/nourished, alert, awake, oriented Head: normal HEENT: Normal Neck: supple, JVP normal, carotid upstrokes normal bilaterally, no masses or thyromegaly Respiratory: chest non-tender, clear to auscultation and percussion bilaterally Cardiovascular: regular rate/rhythm, normal S1, S2, no audible murmur Abdomen: normal bowel sounds, soft, non-tender Extremities: normal inspection, no edema Vascular: Pulses are 2+ and equal bilaterally Neurologic: Grossly normal/nonfocal Current Medications: Current Medications Sig/Michael Start time Last Medication Dose Route Stop Time Status Admin Acetaminophen 1,000 MG .STK-MED ONE 03/23 1427 DC IV 03/23 142 Acetaminophen 1,000 MG Q6P PRN 03/22 1445 03/24 N/A 1 UNIT IV 0610 Ampicillin Sodium/ 3,000 MG Q6 03/22 1800 DC 03/24 Sulbactam Sodium IV 0551 Sodium Chloride 100 ML Docusate Sodium 100 MG TID 03/22 2100 AC 03/24 PO 0909 Fentanyl Citrate 250 MCG .STK-MED ONE 03/23 1427 DC IM 03/23 142 Heparin Sodium 5,000 UNIT Q8 03/22 1432 AC 03/24 (Porcine) SC 0550 Hydromorphone HCl 2 MG .STK-MED ONE 03/23 1427 DC IM 03/23 142 Levothyroxine Sodium 0.075 MG DAILY AC 03/23 0700 AC 03/24 PO 0550 Melatonin 5 MG AT BEDTIME 03/23 2100 AC 03/23 PO 2115 Midazolam HCl 2 MG .STK-MED ONE 03/23 1428 DC IM 03/23 1429 Morphine Sulfate 2 MG Q4P PRN 03/22 1445 AC IV Ondansetron HCl 4 MG Q6P PRN 03/22 1445 AC IV Pantoprazole Sodium 40 MG DAILY 03/22 1659 AC 03/24 IV 0909 Potassium Chloride 40 MEQ ONCE ONE 03/23 2030 DC 03/23 PO 03/23 Potassium Chloride 20 MEQ Q10H 03/23 1000 DC 03/23 Dextrose/Sodium 1,000 ML IV 2046 Chloride Results Last 48 Hrs of Labs/Mics: Laboratory Tests 03/24/18 0642: Anion Gap 11, Estimated GFR > 60, BUN/Creatinine Ratio 26.0 H, Total Bilirubin 0.6, Direct Bilirubin 0.5 H, AST 91 H, ALT 129 H, Alkaline Phosphatase 197 H , Total Protein 5.3 L, Albumin 2.9 L, CBC w Diff NO MAN DIFF REQ, RBC 3.46 L, MCV 87.3, MCH 29.7, MCHC 34.0, RDW 13.2, MPV 7.3 L, Gran % 79.5 H, Lymphocytes % 15.8 L, Monocytes % 4.4, Eosinophils % 0, Basophils % 0.3, Absolute Granulocytes 4.1, Absolute Lymphocytes 0.8 L, Absolute Monocytes 0.2, Absolute Eosinophils 0, Absolute Basophils 0 03/23/18 0658: Anion Gap 12, Estimated GFR > 60, BUN/Creatinine Ratio 30.0 H, Magnesium 1.8, Total Bilirubin 0.8, Direct Bilirubin 0.5 H, AST 60 H, ALT 99 H, Alkaline Phosphatase 160 H, Total Protein 5.7 L, Albumin 3.1 L, Lipase < 10 L, TSH 3.050, CBC w Diff NO MAN DIFF REQ, RBC 3.38 L, MCV 87.2, MCH 29.7, MCHC 34.1, RDW 13.1, MPV 6.9 L, Gran % 58.8, Lymphocytes % 28.8, Monocytes % 8.1, Eosinophils % 3.9, Basophils % 0.4, Absolute Granulocytes 3.0, Absolute Lymphocytes 1.5, Absolute Monocytes 0.4, Absolute Eosinophils 0.2, Absolute Basophils 0 03/23/18 0210: Troponin I < 0.01 03/22/18 1915: Troponin I < 0.01 Assessment/Plan Assessment/Plan Assessment: 1. Abnormal ECG 2. Cholecystitis; day #2 postop 3. Anemia 4. Hypokalemia-resolved 5. Abnormal LFTs-slightly more elevated today Recommendations: -At the moment, the patient appears entirely stable from a cardiac perspective. -I would recommend close follow-up with her primary care physician postoperatively and outpatient follow-up with Dr. Jackson as well. -Please call me if any new issues should arise. Continue telemetry? No
--- NOTE | 2018-03-24 17:10 | Operative Report ---
Operative/Inv Procedure Report Surgery Date: 03/23/18 Name of Procedure: Laparoscopic cholecystectomy Pre-Operative Diagnosis: Acute cholecystitis Post-Operative Diagnosis: Same Estimated Blood Loss: scant Surgeon/Mica Laminating Machine Feeder: Jamari MOREIRA,Navin GUPTA Anesthesia: general endotracheal tube Operative/Procedure Note Note: Patient was positioned supine. After successful induction of general anesthesia, the patient's abdomen was clipped, prepped and draped in the usual sterile fashion. Local anesthetic was injected at the top of the umbilicus and then a curved horizontal incision little over a centimeter was made there with a 15 blade and then deepened to the midline fascia which was incised vertically a little over a centimeter. Both sides were secured with 0 Vicryl stay sutures and then the thin peritoneal layer was entered, 10 mm [place] trocar inserted obliquely to the right, and the gas was turned on to 15 mm. After insufflation and repositioning to reverse Trendelenburg, 3 more dissecting 5 mm trochars were placed in the right subcostal area, first lateral, then mid-subcostal, then subxiphoid. The gallbladder at this point was too thick and distended I tried the needle the bile was too thick so we inserted the suction suctioned out the gallbladder, then the fundus was grasped from the lateral port and retracted up over the edge of the liver and then we dissected out the area of the triangle of Calot while retracting the infundibulum caudally / laterally. First the cystic duct was identified, isolated at the neck, clipped 3 times, divided after the second clip and then in similar fashion the cystic artery was identified medially, dissected and divided. Then the gallbladder was from the liver bed using cautery then lowered into an Endobag and removed through the umbilical incision, but only after pulling it out in pieces with ring forceps. The instruments and then the trochars were removed letting the gas escape. The fascial incision was closed with a 0 Vicryl with a [id number] but also additional interrupted at the top and the bottom because we had to enlarge the incision a little bit, then all 4 skin incisions were closed with interrupted subcuticular 4-0 Monocryl, followed by Mastisol Steri-Strips and Bandaids. Estimated blood loss was minimal, lap and sponge counts were correct, wound expectancy was clean-contaminated, IV fluids crystalloid, complications none, patient tolerated the procedure well and was returned to the recovery room in satisfactory condition.
== END 2018-03-24 13:40 | DRG 419 ==
LOC: ERH 09:08 → ERHI 15:26 → 1NO 15:26 → ENRESERV 17:10 → CANRESERV 17:10 → EDBEDREQTM 18:27 → EDBEDREQ 18:27 → ENTRNSPT 20:18 → EDTRNSPTSTS 20:23 → EDTRNSPT 20:23 → 1NO 20:36 → CMPTRNSPT 20:47 → ENTRNSPT 03-23 19:40 → EDTRNSPTSTS 03-23 19:47 → EDTRNSPT 03-23 19:47 → CMPTRNSPT 03-23 20:09 → 1NO 03-24 13:40 → ENTRNSPT 03-24 13:44 → EDTRNSPTSTS 03-24 13:55 → CMPTRNSPT 03-24 14:13
PROVIDERS: Physician Assistant; Physician Assistant Medical
PROC: 0FT44ZZ Resection of Gallbladder, Percutaneous Endoscopic Approach (ICD-10-PCS; principal; 2018-03-22)
DX: K80.00 Calculus of gallbladder with acute cholecystitis without obstruction (principal); D64.9 Anemia, unspecified; E87.6 Hypokalemia; R74.0 Nonspecific elevation of levels of transaminase and lactic acid dehydrogenase [LDH]; Z91.048 Other nonmedicinal substance allergy status; E78.5 Hyperlipidemia, unspecified; R94.31 Abnormal electrocardiogram [ECG] [EKG]; E89.0 Postprocedural hypothyroidism
CPT/HCPCS: 1NSP; 36415; 36592; 74177; 81001; 82436; 93005; 93010; 96365; 96372; 96375; C9399; J0131; J1644; J7042